=== PATIENT | male | born 1970 | race Caucasian/White ===

== ENCOUNTER 2021-08-01 11:25 | Inpatient (IN) | payer SELFPAY ==
[~2021-08-01] VITALS: Ht 185.4 cm; Wt 168.5 kg
--- NOTE | 2021-08-01 12:01 | ED.ADGEN ---
Past Medical History Past Medical History: Alcoholism Past Surgical History: No Surgical History Smoking Status: Current Every Day Smoker Alcohol Use: Heavy General Adult EDM: Chief Complaint: MULTIPLE COMPLAINTS HPI: HPI: Patient is a 51-year-old male who arrives via EMS complaining of progressive difficulty breathing as well as swelling over the past several weeks. Patient states he has a history of liver disease and drinks alcohol regularly to the tune of 6-8 beers nightly. Patient states over the past several weeks she has noticed that he has become more short of air with any exertion and does exhibit mild shortness of air at rest. Despite this, he denies any history of chest pain or fever. He further denies any known sick contacts and has had the coronavirus vaccine series. He does take a water pill however he denies any known diagnosis of congestive heart failure. He is awake, alert and nontoxic- appearing Review of Systems: Review of Systems: Constitutional: Reports fatigue. Denies fever or chills. [] Eyes: Denies change in visual acuity. [] HENT: Denies nasal congestion or sore throat. [] Respiratory: Reports shortness of breath. Denies cough. [] Cardiovascular: Reports generalized edema. Denies chest pain. [] GI: Denies abdominal pain, nausea, vomiting, bloody stools or diarrhea. [] : Denies dysuria. [] Musculoskeletal: Denies back pain or joint pain. [] Integument: Denies rash. [] Neurologic: Denies headache, focal weakness or sensory changes. [] Endocrine: Denies polyuria or polydipsia. [] Lymphatic: Denies swollen glands. [] Psychiatric: Denies depression or anxiety. [] Current Medications: Current Medications Medications (Trade) Dose Ordered Sig/Claus Start Time Stop Time Status Last Admin Dose Admin Ondansetron HCl (Zofran) 4 mg PRN Q8HRS PRN 08/01/21 13:15 08/02/21 13:14 UNV Allergies: Allergies: Allergies Uncoded Allergies Type Severity Reaction Last Updated Verified BEE STINGS Allergy Unknown 08/01/21 Physical Exam: PE: Constitutional: Obese and uncomfortable appearing. Well developed, well nourished, non-toxic appearance. [] HENT: Normocephalic, atraumatic, bilateral external ears normal, oropharynx moist, no oral exudates, nose normal. [] Eyes: PERRLA, EOMI, conjunctiva normal, no discharge. [] Neck: Normal range of motion, no tenderness, supple, no stridor. [] Cardiovascular:Heart rate regular rhythm, no murmur [] Lungs & Thorax: Patient has diminished breath sounds bilaterally. [] Abdomen: Abdominal wall distention/edema. Bowel sounds normal, soft, no tenderness, no masses, no pulsatile masses. [] Skin: Warm, dry, no erythema, no rash. [] Back: No tenderness, no CVA tenderness. [] Extremities: Patient has generalized edema of his extremities which is pitting in nature. No cyanosis, no clubbing, ROM intact, no edema. [] Neurologic: Alert and oriented X 3, normal motor function, normal sensory function, no focal deficits noted. [] Psychologic: Affect normal, judgement normal, mood normal. [] Current Patient Data: Labs: Laboratory Tests Test 08/01/21 12:05 White Blood Count 8.5 x10^3/uL (4.0-11.0) Red Blood Count 2.27 x10^6/uL (4.30-5.70) L Hemoglobin 9.9 g/dL (13.0-17.5) L Hematocrit 28.8 % (39.0-53.0) L Mean Corpuscular Volume 127 fL (79-100) H Mean Corpuscular Hemoglobin 43 pg (25-35) H Mean Corpuscular Hemoglobin Concent 34 g/dL (31-37) Red Cell Distribution Width 14.3 % (11.5-14.5) Platelet Count 137 x10^3/uL (140-400) L Neutrophils (%) (Auto) 77 % (31-73) H Lymphocytes (%) (Auto) 11 % (24-48) L Monocytes (%) (Auto) 11 % (0-9) H Eosinophils (%) (Auto) 1 % (0-3) Basophils (%) (Auto) 1 % (0-3) Neutrophils # (Auto) 6.5 x10^3/uL (1.8-7.7) Lymphocytes # (Auto) 0.9 x10^3/uL (1.0-4.8) L Monocytes # (Auto) 0.9 x10^3/uL (0.0-1.1) Eosinophils # (Auto) 0.0 x10^3/uL (0.0-0.7) Basophils # (Auto) 0.1 x10^3/uL (0.0-0.2) Platelet Estimate Decreased (ADEQUATE) Polychromasia Occasional Anisocytosis Slight Macrocytosis Mod Sodium Level 130 mmol/L (136-145) L Potassium Level 4.0 mmol/L (3.5-5.1) Chloride Level 94 mmol/L (98-107) L Carbon Dioxide Level 26 mmol/L (21-32) Anion Gap 10 (6-14) Blood Urea Nitrogen 4 mg/dL (8-26) L Creatinine 0.8 mg/dL (0.7-1.3) Estimated GFR (Cockcroft-Gault) 101.9 BUN/Creatinine Ratio 5 (6-20) L Glucose Level 133 mg/dL (70-99) H Calcium Level 7.7 mg/dL (8.5-10.1) L Total Bilirubin 4.4 mg/dL (0.2-1.0) H Aspartate Amino Transferase (AST) 82 U/L (15-37) H Alanine Aminotransferase (ALT) 27 U/L (16-63) Alkaline Phosphatase 200 U/L (46-116) H Troponin I High Sensitivity 9 ng/L (4-75) WV-Qqf-V-Type Natriuretic Peptide 251 pg/mL (0-124) H Total Protein 6.7 g/dL (6.4-8.2) Albumin 2.4 g/dL (3.4-5.0) L Albumin/Globulin Ratio 0.6 (1.0-1.7) L Laboratory Tests 08/01/21 12:05 Laboratory Tests 08/01/21 12:05 Vital Signs: Vital Signs Date Time Temp Pulse Resp B/P (MAP) Pulse Ox O2 Delivery O2 Flow Rate FiO2 08/01/21 12:39 99 157/69 (98) 100 Room Air 08/01/21 11:35 97.8 24 97.8 EKG: EKG: EKG was obtained at 11:40 AM and revealed a sinus tachycardia with a ventricular rate of 102 bpm. There are no acute ST/T wave changes to denote ischemia. This is an otherwise normal EKG. [] Heart Score: C/O Chest Pain: No Risk Factors: Risk Factors: DM, Current or recent (<one month) smoker, HTN, HLP, family history of CAD, obesity. Risk Scores: Score 0 - 3: 2.5% MACE over next 6 weeks - Discharge Home Score 4 - 6: 20.3% MACE over next 6 weeks - Admit for Clinical Observation Score 7 - 10: 72.7% MACE over next 6 weeks - Early Invasive Strategies Radiology/Procedures: Radiology/Procedures: [] Impression: [facility] [address] [place] [address] IMAGING REPORT Signed PATIENT: GARCIA DUMONT ACCOUNT: [id number] : 1970 LOCATION: ER AGE: 51 SEX: M EXAM STATUS: REG ER ORD. PHYSICIAN: MAYLIN OSEGUERA DO REASON: soa PROCEDURE: PORTABLE CHEST 1V Portable AP chest. HISTORY: Short of air AP view was taken of the chest. Heart is upper normal in size for an AP chest. There is no effusion. There are no confluent infiltrates. There is not evidence of heart failure. IMPRESSION: 1. No acute infiltrates. Electronically signed by: Stalin Johnson MD (08/01/2021 12:35 PM) [id number] DICTATED and SIGNED BY: STALIN JOHNSON MD DATE: 08/01/21 [id number] 0 Course & Med Decision Making: Course & Med Decision Making Pertinent Labs and Imaging studies reviewed. (See chart for details) [] Dragon Disclaimer: Dragon Disclaimer: This electronic medical record was generated, in whole or in part, using a voice recognition dictation system. Departure Departure Impression: Primary Impression: Respiratory distress Additional Impressions: History of alcoholism Person under investigation for COVID-19 Generalized edema Hyperbilirubinemia Disposition: ADMITTED INPATIENT Admitting Physician: EUGENIO Condition: STABLE Problem Qualifiers MAYLIN OSEGUERA DO Aug 01, 2021 12:01
[2021-08-01 12:23] LABS: BASO # 0.1 x10^3/uL (0.0-0.2); BASO % 1 % (0-3); EOS % 1 % (0-3); HEMATOCRIT 28.8 % (39.0-53.0); HEMOGLOBIN 9.9 g/dL (13.0-17.5); LYMPH # 0.9 x10^3/uL (1.0-4.8); LYMPH % 11 % (24-48); MEAN CORPUSCULAR HEMOGLOBIN 43 pg (25-35); MEAN CORPUSCULAR HGB CONC 34 g/dL (31-37); MONO # 0.9 x10^3/uL (0.0-1.1); MONO % 11 % (0-9); NEUT # 6.5 x10^3/uL (1.8-7.7); NEUT % 77 % (31-73); PLATELET COUNT 137 x10^3/uL (140-400); RED BLOOD COUNT 2.27 x10^6/uL (4.30-5.70); RED CELL DISTRIBUTION WIDTH 14.3 % (11.5-14.5); WHITE BLOOD COUNT 8.5 x10^3/uL (4.0-11.0)
[2021-08-01 12:24] LABS: MEAN CORPUSCULAR VOLUME 127 fL (79-100)
[2021-08-01 12:29] LABS: CALCIUM 7.7 mg/dL (8.5-10.1); CREATININE 0.8 mg/dL (0.7-1.3); GFR 101.9
[2021-08-01 12:35] LABS: ALBUMIN 2.4 g/dL (3.4-5.0); ALBUMIN/GLOBULIN RATIO 0.6 (1.0-1.7); TOTAL BILIRUBIN 4.4 mg/dL (0.2-1.0); TOTAL PROTEIN 6.7 g/dL (6.4-8.2)
--- NOTE | 2021-08-01 12:37 | RAD ---
Portable AP chest. HISTORY: Short of air AP view was taken of the chest. Heart is upper normal in size for an AP chest. There is no effusion. There are no confluent infiltrates. There is not evidence of heart failure. IMPRESSION: 1. No acute infiltrates. Electronically signed by: Stalin Whittington MD (08/01/2021 12:35 PM) [id number]
[2021-08-01 12:41] LABS: PLT ESTIMATE DECREASED (ADEQUATE)
[2021-08-01 12:43] LABS: ANISOCYTOSIS SLIGHT; POLYCHROMASIA OCCASIONAL
[2021-08-01] MEDS ORDERED: ONDANSETRON PF 4 MG/2 ML VIAL. IVP PRN ×2 (13:15→13:30)
[2021-08-01] MEDS ORDERED: DEXTROSE 50% 25 GM / 50ML DISP.SYRIN. IV PRN (13:30)
[2021-08-01] MEDS ORDERED: PROCHLORPERAZINE 10 MG/2 ML VIAL. IV PRN (13:30)
[2021-08-01] MEDS ORDERED: DOCUSATE SODIUM 100 MG CAPSULE. PO PRN (13:30)
[2021-08-01] MEDS ORDERED: ZOLPIDEM 5 MG TABLET. PO PRN (13:30)
[2021-08-01] MEDS ORDERED: SENNOSIDES 8.6 MG TABLET PO PRN (13:30)
[2021-08-01 13:32] LABS: BILIRUBIN,URINE NEGATIVE (NEG); CLARITY,URINE CLEAR; COLOR,URINE AMBER; NITRITE,URINE NEGATIVE (NEG); PROTEIN,URINE NEGATIVE (NEG-TRACE)
[2021-08-01 13:39] LABS: BARBITURATES NEG (NEG); BENZODIAZEPINES NEG (NEG); CANNABINOIDS NEG (NEG); COCAINE NEG (NEG); HYALINE CASTS, URINE MODERATE /HPF; METHADONE NEG (NEG); OPIATES NEG (NEG); PHENCYCLIDINE NEG (NEG)
[2021-08-01 13:41] LABS: AMPHETAMINE/METHAMPHETAMINE NEG (NEG)
[2021-08-01 13:41] LABS: CHOLESTEROL/HDL RATIO 3.3
[2021-08-01 13:42] LABS: BACTERIA,URINE 0 /HPF (0-FEW)
[2021-08-01] MEDS: FOLIC ACID 1 MG TABLET. PO SCH (14:00)
--- NOTE | 2021-08-01 14:02 | RAD ---
EXAMINATION: US ABDOMEN COMPLETE 08/01/2021 1:21 PM INDICATION: Abdominal pain elevated bilirubin, rule out gallbladder disease TECHNIQUE: Kellogg scale ultrasound images of the abdomen were obtained. COMPARISON: None. FINDINGS: Nondiagnostic exam due extensive bowel gas shadowing, obscuring all of the abdominal organs. IMPRESSION: Nondiagnostic exam due to extensive bowel gas shadowing. Unable to visualize any of the a bdominal organs. Electronically signed by: Citlali Salinas MD (08/01/2021 1:59 PM) [id number]
--- NOTE | 2021-08-01 14:20 | PDOC2 ---
GI CONSULT Date of Service: DATE: 08/01/21 TIME: 13:53 Reason For Consult: h/o alcoholism, liver disease HPI: HPI: 51 y/o male to ER for evaluation of shortness of breath and swelling. Ongoing issue for a couple weeks. Was seen at [facility] ER by [employer] [facility] for same symptoms; indicates some sort of imaging was done ("they put me in a big tube") and "everything pointed to liver disease." Was given "pee pills" (two different medications) and told to see a liver specialist. Not feeling much better, so decided to come here. Denies reflux/heartburn, dysphagia, n/v, abd pain, diarrhea, constipation, hematochezia, or melena. Has gained weight - attributes to living with his mom who offers him brownies. No previous EGD or colonoscopy. Denies GB, pancreas, and PUD history. Takes no OTC medications. Had Moderna COVID vaccines. PMH: PMH: diabetes (says controlled w/ diet and weight loss in the past) FH: Family History: No pertinent hx (denies liver disease, GI cancers) Social History: Smoke: Quit (1 week ago) ALCOHOL: heavy (6-8 beers daily, had two this morning) Drugs: None ROS: GEN: Denies fevers, chills, sweats HEENT: Denies blurred vision, sore throat CV: Denies chest pain RESP: +shortness of air GI: Per HPI : Denies hematuria, dysuria ENDO: +weight gain NEURO: Denies confusion, dizziness MSK: +weakness/tightness in legs SKIN: Denies jaundice, pruritus Vitals: Vitals: Vital Signs Date Time Temp Pulse Resp B/P (MAP) Pulse Ox O2 Delivery O2 Flow Rate FiO2 08/01/21 12:39 99 157/69 (98) 100 Room Air 08/01/21 11:35 97.8 24 97.8 Labs: Labs: Laboratory Tests Test 08/01/21 12:05 08/01/21 12:40 08/01/21 13:10 White Blood Count 8.5 x10^3/uL (4.0-11.0) Red Blood Count 2.27 x10^6/uL (4.30-5.70) Hemoglobin 9.9 g/dL (13.0-17.5) Hematocrit 28.8 % (39.0-53.0) Mean Corpuscular Volume 127 fL (79-100) Mean Corpuscular Hemoglobin 43 pg (25-35) Mean Corpuscular Hemoglobin Concent 34 g/dL (31-37) Red Cell Distribution Width 14.3 % (11.5-14.5) Platelet Count 137 x10^3/uL (140-400) Neutrophils (%) (Auto) 77 % (31-73) Lymphocytes (%) (Auto) 11 % (24-48) Monocytes (%) (Auto) 11 % (0-9) Eosinophils (%) (Auto) 1 % (0-3) Basophils (%) (Auto) 1 % (0-3) Neutrophils # (Auto) 6.5 x10^3/uL (1.8-7.7) Lymphocytes # (Auto) 0.9 x10^3/uL (1.0-4.8) Monocytes # (Auto) 0.9 x10^3/uL (0.0-1.1) Eosinophils # (Auto) 0.0 x10^3/uL (0.0-0.7) Basophils # (Auto) 0.1 x10^3/uL (0.0-0.2) Platelet Estimate Decreased (ADEQUATE) Polychromasia Occasional Anisocytosis Slight Macrocytosis Mod Sodium Level 130 mmol/L (136-145) Potassium Level 4.0 mmol/L (3.5-5.1) Chloride Level 94 mmol/L (98-107) Carbon Dioxide Level 26 mmol/L (21-32) Anion Gap 10 (6-14) Blood Urea Nitrogen 4 mg/dL (8-26) Creatinine 0.8 mg/dL (0.7-1.3) Estimated GFR (Cockcroft-Gault) 101.9 BUN/Creatinine Ratio 5 (6-20) Glucose Level 133 mg/dL (70-99) Calcium Level 7.7 mg/dL (8.5-10.1) Iron Level 72 ug/dL (65-175) Total Iron Binding Capacity 102 ug/dL (250-450) Iron Saturation 71 % (15-34) Total Bilirubin 4.4 mg/dL (0.2-1.0) Aspartate Amino Transf (AST/SGOT) 82 U/L (15-37) Alanine Aminotransferase (ALT/SGPT) 27 U/L (16-63) Alkaline Phosphatase 200 U/L (46-116) Troponin I High Sensitivity 9 ng/L (4-75) UW-Aex-N-Type Natriuretic Peptide 251 pg/mL (0-124) Total Protein 6.7 g/dL (6.4-8.2) Albumin 2.4 g/dL (3.4-5.0) Albumin/Globulin Ratio 0.6 (1.0-1.7) Triglycerides Level 75 mg/dL (0-150) Cholesterol Level 52 mg/dL (0-200) LDL Cholesterol, Calculated 21 mg/dL (0-100) VLDL Cholesterol, Calculated 15 mg/dL (0-40) Non-HDL Cholesterol Calculated 36 mg/dL (0-129) HDL Cholesterol 16 mg/dL (40-60) Cholesterol/HDL Ratio 3.3 SARS-CoV-2 Antigen (Rapid) Negative (NEGATIVE) Urine Collection Type Unknown Urine Color Mariah Urine Clarity Clear Urine pH 6.0 (<5.0-8.0) Urine Specific [place] <=1.005 (1.000-1.030) Urine Protein Negative mg/dL (NEG-TRACE) Urine Glucose (UA) Negative mg/dL (NEG) Urine Ketones (Stick) Negative mg/dL (NEG) Urine Blood Moderate (NEG) Urine Nitrite Negative (NEG) Urine Bilirubin Negative (NEG) Urine Urobilinogen Dipstick 1.0 mg/dL (0.2 mg/dL) Urine Leukocyte Esterase Trace (NEG) Urine RBC 3-5 /HPF (0-2) Urine WBC 1-4 /HPF (0-4) Urine Squamous Epithelial Cells Few /LPF Urine Bacteria 0 /HPF (0-FEW) Urine Hyaline Casts Moderate /HPF Urine Mucus Slight /LPF Urine Opiates Screen Neg (NEG) Urine Methadone Screen Neg (NEG) Urine Barbiturates Neg (NEG) Urine Phencyclidine Screen Neg (NEG) Urine Amphetamine/Methamphetamine Neg (NEG) Urine Benzodiazepines Screen Neg (NEG) Urine Cocaine Screen Neg (NEG) Urine Cannabinoids Screen Neg (NEG) Urine Ethyl Alcohol Pos (NEG) Ammonia 33 mcmol/L (11-34) Ethyl Alcohol Level 15 mg/dL (0-10) Allergies: Uncoded Allergies: BEE STINGS (Allergy, Unknown, 08/01/21) Imaging: Imaging: CXR 08/01 IMPRESSION: 1. No acute infiltrates. Abd US 08/01 pending PE: GEN: sweaty HEENT: Atraumatic, PERRL LUNGS: clear anteriorly, at some tachypneic HEART: mildly tachycardic ABD: quiet BS, large/distended - ?ascites? - chronic skin changes in lower area, EXTREMITY/SKIN: BLE redness/edema, rash on abdomen, telangiectasia bilateral cheeks NEURO/PSYCH: A & O 3 A/P: A/P: Shortness of breath, BLE edema, h/o heavy alcohol use Macrocytic anemia (MCV impressive), thrombocytopenia, abnormal LFTs, elevated iron sat CRC screen - none Rapid COVID negative -- Suspected alcoholic liver disease. Await pending labs (B12, INR, viral Hep panel) and US. Consider paracentesis if imaging notes ascites. Will ask for imaging/labs from recent ER visit. Withdrawal support per primary, continue thiamine. Will review diuretics w/ Dr. Galo. 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 MIRIAM DIAZ Aug 01, 2021 14:20
[2021-08-01] MEDS: THIAMINE INJ 100 MG in IV DEXTROSE 5% 50 ML IV SCH (14:37)
[2021-08-01] MEDS: CYANOCOBALAMIN (VITAMIN B-12) 1,000 MCG/ML VIAL. IM SCH (14:38)
[2021-08-01 15:15] VITALS: BP 159/73
[2021-08-01 15:16] LABS: PROTHROMBIN TIME PATIENT 18.6 SEC (11.7-14.0)
--- NOTE | 2021-08-01 16:24 | RAD ---
EXAMINATION: CT abdomen and pelvis without IV contrast. INDICATION:51 years, Male, abdominal pain, ascites?. TECHNIQUE: Axial CT images of the abdomen and pelvis were obtained. Coronal and sagittal reformatted performed. COMPARISON: Same day abdominal CT. Exposure: One or more of the following individualized dose reduction techniques were utilized for thi s examination: 1. Automated exposure control 2. Adjustment of the mA and/or kV according to patient size 3. Use of iterative reconstruction technique. FINDINGS: LOWER CHEST: Mild bibasilar subsegmental atelectasis. ABDOMEN/PELVIS: Hepatic steatosis. No focal abnormality. Gallbladder is mildly distended with minimal layering sludge and/or stones. No definite pericholecystic fluid. No pathologic dilation of the intra or extrahepati c bile ducts. Pancreas demonstrates normal attenuation with mild peripancreatic edema. Kidneys are sy mmetric no nephrolithiasis or hydroureteronephrosis. Stomach is unremarkable. No evidence of bowel ob struction 6 is normal. The small and large bowel is mostly decompressed. There is sigmoid diverticulo sis without evidence of diverticulitis. No free intra-abdominal air. There is a juliana appearance of t he mesenteric root. Enlarged marlene hepatis adenopathy measuring up to 1.4 cm in short axis, likely reactive. There is a t race amount of intra-abdominal ascites. Urinary bladder is unremarkable. Prostate is unremarkable. MUSCULOSKELETAL: There is diffuse anasarca. No evidence of loculated fluid collection within the subc utaneous tissues. No acute or suspicious osseous abnormalities. IMPRESSION: 1. Findings suggestive of fluid overload including severe anasarca and trace intra-abdominal ascites. 2. Mild peripancreatic fat stranding may represent sequela of fluid overload, recommend correlation w ith lipase to exclude acute pancreatitis. 3. Hepatic steatosis with likely reactive enlarged marlene hepatis lymph nodes. No imaging findings to suggest cirrhosis. Recommend attention on follow-up. Electronically signed by: Tyrone Tesfaye DO (08/01/2021 4:22 PM) [facility]
--- NOTE | 2021-08-01 16:26 | EKG ---
[facility] [address] [place] [address] Test Date: 2021-08-01 Test Time: 11:40:01 Pat Name: GARCIA DUMONT Department: Room: 2 Gender: M [employer]aze [employer]er: : 1970 Requested By: MAYLIN OSEGUERA Order Number: [id number] Reading MD: Quentin Aponte Measurements Intervals [place] Rate: 102 P: 44 WV: 152 QRS: 23 QRSD: 78 T: 66 QT: 368 QTc: 484 Interpretive Statements SINUS TACHYCARDIA NON SPECIFIC ST-T WAVE CHANGES RI6.02 No previous ECG available for comparison Electronically Signed On 08-06-2021 10:10:54 [employer] by Quentin Aponte
--- NOTE | 2021-08-01 17:04 | PDOC1 ---
History and Physical Date of Service: DOS: DATE: 08/01/21 TIME: 16:41 Chief Complaint: Chief Complain: SOB History of Present Illness: HPI: 51 yo M with PMHx of DM, obesity who comes in with worsening shortness of breath and lower extremity swelling that has been happening over several weeks. Before this incident, patient was seen at [facility] ER and was told to see a liver specialist because he likely has liver disease. He was given a diuretic and sent home. He has not followed up with those recommendations and therefore he decided to come to [facility]. He does endorse nightly 6-8 beers of drinking. Patient states over the past several weeks she has noticed that he has become more short of air with any exertion and does exhibit mild shortness of air at rest. Denies chest pain, diarrhea, hematemesis, melena, or constipation. He does endorse weight gain. He is COVID vaccinated. No previous EGD or colonoscopy. Past Medical/Surgical History: PMH/PSH: DM, Morbid obesity Allergies: Allergies: Uncoded Allergies: BEE STINGS (Allergy, Unknown, 08/01/21) Family History: Family History: REviewed with no relevant findings Social History: Social History: Smoking Status: Current Every Day Smoker Alcohol Use: Heavy Current Medications: Current Medications Current Medications Ondansetron HCl (Zofran) 4 mg PRN Q8HRS PRN IVP NAUSEA/VOMITING; Start 08/01/21 at 13:15; Stop 08/02/21 at 13:14 Thiamine HCl 100 mg/Dextrose 51 ml @ 102 mls/hr DAILY IV Last administered on 08/01/21at 14:37; Start 08/01/21 at 14:00 Folic Acid (Folic Acid) 1 mg DAILY PO ; Start 08/01/21 at 14:00 Cyanocobalamin (Vitamin B-12 Inj) 1,000 mcg DAILY IM Last administered on 08/01/21at 14:38; Start 08/01/21 at 13:15 Sennosides (Senna) 17.2 mg PRN BID PRN PO CONSTIPATION; Start 08/01/21 at 13:30 Docusate Sodium (Colace) 100 mg PRN DAILY PRN PO HARD STOOLS; Start 08/01/21 at 13:30 Ondansetron HCl (Zofran) 4 mg PRN Q6HRS PRN IVP NAUSEA/VOMITING; Start 08/01/21 at 13:30 Dextrose (Dextrose 50%-Water Syringe) 12.5 gm PRN Q15MIN PRN IV SEE COMMENTS; Start 08/01/21 at 13:30 Acetaminophen (Tylenol) 650 mg PRN Q4HRS PRN PO TEMP OVER 100.4F OR MILD PAIN; Start 08/01/21 at 13:30 Lorazepam (Ativan) 0.5 mg PRN Q6HRS PRN PO ANXIETY / AGITATION; Start 08/01/21 at 13:30 Lorazepam (Ativan Inj) 0.25 mg PRN Q4HRS PRN IV ANXIETY / AGITATION; Start 08/01/21 at 13:30 Prochlorperazine Edisylate (Compazine) 10 mg PRN Q6HRS PRN IV NAUSEA/VOMITING; Start 08/01/21 at 13:30 Zolpidem Tartrate (Ambien) 2.5 mg PRN QHS PRN PO INSOMNIA; Start 08/01/21 at 13:30 ROS: Review of Systems Review of System REVIEW OF SYSTEMS: GENERAL: Denies weakness SKIN: No bruising, hair changes or rashes. EYES: No blurred, double or loss of vision. NOSE AND THROAT: No history of nosebleeds, hoarseness or sore throat. HEART: No history of palpitations, chest pain or shortness of breath on exertion. LUNGS: Denies cough, hemoptysis, wheezing or shortness of breath. GASTROINTESTINAL: Denies changes in appetite, nausea, vomiting, diarrhea or constipation. GENITOURINARY: No history of frequency, urgency, hesitancy or nocturia. NEUROLOGIC: Denies history of numbness, tingling, or tremor. PSYCHIATRIC: No history of panic, anxiety or depression. ENDOCRINE: No history of heat or cold intolerance, polyuria or polydipsia. EXTREMITIES: Denies joint pain, pain on walking or stiffness. Physical Exam: Vital Signs: Vital Signs Date Time Temp Pulse Resp B/P (MAP) Pulse Ox O2 Delivery O2 Flow Rate FiO2 08/01/21 15:15 97.9 102 28 159/73 (101) 99 Room Air 97.9 Physcial Exam: GEN: No apparent distress. Alert and oriented HEENT: Normal cephalic, atraumatic, external auditory canals are patent EYES: Extraocular muscles are intact, pupil are equally round and reactive to light and accommodation MUSCULOSKELETAL: Well developed , well nourished, good range of motion ENDOCRINE: No thyromegaly was palpated LYMPHATICS: No cervical chain or axillary nodes were noted HEMATOPOIETIC: No bruising NECK: Supple, no JVD, no thyromegaly was noted LUNGS: Clear to auscultation in all lung alvarez without rhonchi or wheezing HEART: RRR, S!, S2 present. Peripheral pulses intact, no obvious murmurs noted ABDOMEN: Soft, nontender. Positive bowel sounds, no organomegaly, normal bowel sounds EXTREMITIES: Without clubbing, cyanosis, or edema. Pedal pulses intact. Negative Homans sign NEUROLOGIC: Normal speech and tone. A&O x 3, moves all extremities, no obvious focal deficits PSYCHIATRIC: Normal affect, normal mood. Stable SKIN: No ulcerations or rashes, good skin turgor, no jaundice VASCULAR: Good capillary refill, neurovascular bundle appears to be intact Labs: Labs: Laboratory Tests Test 08/01/21 12:05 08/01/21 12:37 08/01/21 12:40 08/01/21 13:10 White Blood Count 8.5 x10^3/uL (4.0-11.0) Red Blood Count 2.27 x10^6/uL (4.30-5.70) Hemoglobin 9.9 g/dL (13.0-17.5) Hematocrit 28.8 % (39.0-53.0) Mean Corpuscular Volume 127 fL (79-100) Mean Corpuscular Hemoglobin 43 pg (25-35) Mean Corpuscular Hemoglobin Concent 34 g/dL (31-37) Red Cell Distribution Width 14.3 % (11.5-14.5) Platelet Count 137 x10^3/uL (140-400) Neutrophils (%) (Auto) 77 % (31-73) Lymphocytes (%) (Auto) 11 % (24-48) Monocytes (%) (Auto) 11 % (0-9) Eosinophils (%) (Auto) 1 % (0-3) Basophils (%) (Auto) 1 % (0-3) Neutrophils # (Auto) 6.5 x10^3/uL (1.8-7.7) Lymphocytes # (Auto) 0.9 x10^3/uL (1.0-4.8) Monocytes # (Auto) 0.9 x10^3/uL (0.0-1.1) Eosinophils # (Auto) 0.0 x10^3/uL (0.0-0.7) Basophils # (Auto) 0.1 x10^3/uL (0.0-0.2) Platelet Estimate Decreased (ADEQUATE) Polychromasia Occasional Anisocytosis Slight Macrocytosis Mod Sodium Level 130 mmol/L (136-145) Potassium Level 4.0 mmol/L (3.5-5.1) Chloride Level 94 mmol/L (98-107) Carbon Dioxide Level 26 mmol/L (21-32) Anion Gap 10 (6-14) Blood Urea Nitrogen 4 mg/dL (8-26) Creatinine 0.8 mg/dL (0.7-1.3) Estimated GFR (Cockcroft-Gault) 101.9 BUN/Creatinine Ratio 5 (6-20) Glucose Level 133 mg/dL (70-99) Calcium Level 7.7 mg/dL (8.5-10.1) Iron Level 72 ug/dL (65-175) Total Iron Binding Capacity 102 ug/dL (250-450) Iron Saturation 71 % (15-34) Total Bilirubin 4.4 mg/dL (0.2-1.0) Aspartate Amino Transf (AST/SGOT) 82 U/L (15-37) Alanine Aminotransferase (ALT/SGPT) 27 U/L (16-63) Alkaline Phosphatase 200 U/L (46-116) Troponin I High Sensitivity 9 ng/L (4-75) YR-Iwn-N-Type Natriuretic Peptide 251 pg/mL (0-124) Total Protein 6.7 g/dL (6.4-8.2) Albumin 2.4 g/dL (3.4-5.0) Albumin/Globulin Ratio 0.6 (1.0-1.7) Triglycerides Level 75 mg/dL (0-150) Cholesterol Level 52 mg/dL (0-200) LDL Cholesterol, Calculated 21 mg/dL (0-100) VLDL Cholesterol, Calculated 15 mg/dL (0-40) Non-HDL Cholesterol Calculated 36 mg/dL (0-129) HDL Cholesterol 16 mg/dL (40-60) Cholesterol/HDL Ratio 3.3 Vitamin B12 Level > 2000 pg/mL (247-911) Hepatitis A IgM Antibody Nonreactive (Nonreactive) Hepatitis B Surface Antigen Nonreactive (Nonreactive) Hepatitis B Core IgM Antibody Nonreactive (Nonreactive) Hepatitis C IgG Antibody Nonreactive (Nonreactive) SARS-CoV-2 Antigen (Rapid) Negative (NEGATIVE) SARS-CoV-2 RNA (SOCRATES) Negative (Negative) Urine Collection Type Unknown Urine Color Mariah Urine Clarity Clear Urine pH 6.0 (<5.0-8.0) Urine Specific [place] <=1.005 (1.000-1.030) Urine Protein Negative mg/dL (NEG-TRACE) Urine Glucose (UA) Negative mg/dL (NEG) Urine Ketones (Stick) Negative mg/dL (NEG) Urine Blood Moderate (NEG) Urine Nitrite Negative (NEG) Urine Bilirubin Negative (NEG) Urine Urobilinogen Dipstick 1.0 mg/dL (0.2 mg/dL) Urine Leukocyte Esterase Trace (NEG) Urine RBC 3-5 /HPF (0-2) Urine WBC 1-4 /HPF (0-4) Urine Squamous Epithelial Cells Few /LPF Urine Bacteria 0 /HPF (0-FEW) Urine Hyaline Casts Moderate /HPF Urine Mucus Slight /LPF Urine Opiates Screen Neg (NEG) Urine Methadone Screen Neg (NEG) Urine Barbiturates Neg (NEG) Urine Phencyclidine Screen Neg (NEG) Urine Amphetamine/Methamphetamine Neg (NEG) Urine Benzodiazepines Screen Neg (NEG) Urine Cocaine Screen Neg (NEG) Urine Cannabinoids Screen Neg (NEG) Urine Ethyl Alcohol Pos (NEG) Ammonia 33 mcmol/L (11-34) Ethyl Alcohol Level 15 mg/dL (0-10) Test 08/01/21 14:31 Prothrombin Time 18.6 SEC (11.7-14.0) Prothromb Time International Ratio 1.6 (0.8-1.1) Laboratory Tests Test 08/01/21 12:05 08/01/21 12:37 08/01/21 12:40 08/01/21 13:10 White Blood Count 8.5 x10^3/uL (4.0-11.0) Red Blood Count 2.27 x10^6/uL (4.30-5.70) Hemoglobin 9.9 g/dL (13.0-17.5) Hematocrit 28.8 % (39.0-53.0) Mean Corpuscular Volume 127 fL (79-100) Mean Corpuscular Hemoglobin 43 pg (25-35) Mean Corpuscular Hemoglobin Concent 34 g/dL (31-37) Red Cell Distribution Width 14.3 % (11.5-14.5) Platelet Count 137 x10^3/uL (140-400) Neutrophils (%) (Auto) 77 % (31-73) Lymphocytes (%) (Auto) 11 % (24-48) Monocytes (%) (Auto) 11 % (0-9) Eosinophils (%) (Auto) 1 % (0-3) Basophils (%) (Auto) 1 % (0-3) Neutrophils # (Auto) 6.5 x10^3/uL (1.8-7.7) Lymphocytes # (Auto) 0.9 x10^3/uL (1.0-4.8) Monocytes # (Auto) 0.9 x10^3/uL (0.0-1.1) Eosinophils # (Auto) 0.0 x10^3/uL (0.0-0.7) Basophils # (Auto) 0.1 x10^3/uL (0.0-0.2) Platelet Estimate Decreased (ADEQUATE) Polychromasia Occasional Anisocytosis Slight Macrocytosis Mod Sodium Level 130 mmol/L (136-145) Potassium Level 4.0 mmol/L (3.5-5.1) Chloride Level 94 mmol/L (98-107) Carbon Dioxide Level 26 mmol/L (21-32) Anion Gap 10 (6-14) Blood Urea Nitrogen 4 mg/dL (8-26) Creatinine 0.8 mg/dL (0.7-1.3) Estimated GFR (Cockcroft-Gault) 101.9 BUN/Creatinine Ratio 5 (6-20) Glucose Level 133 mg/dL (70-99) Calcium Level 7.7 mg/dL (8.5-10.1) Iron Level 72 ug/dL (65-175) Total Iron Binding Capacity 102 ug/dL (250-450) Iron Saturation 71 % (15-34) Total Bilirubin 4.4 mg/dL (0.2-1.0) Aspartate Amino Transf (AST/SGOT) 82 U/L (15-37) Alanine Aminotransferase (ALT/SGPT) 27 U/L (16-63) Alkaline Phosphatase 200 U/L (46-116) Troponin I High Sensitivity 9 ng/L (4-75) OE-Xcq-U-Type Natriuretic Peptide 251 pg/mL (0-124) Total Protein 6.7 g/dL (6.4-8.2) Albumin 2.4 g/dL (3.4-5.0) Albumin/Globulin Ratio 0.6 (1.0-1.7) Triglycerides Level 75 mg/dL (0-150) Cholesterol Level 52 mg/dL (0-200) LDL Cholesterol, Calculated 21 mg/dL (0-100) VLDL Cholesterol, Calculated 15 mg/dL (0-40) Non-HDL Cholesterol Calculated 36 mg/dL (0-129) HDL Cholesterol 16 mg/dL (40-60) Cholesterol/HDL Ratio 3.3 Vitamin B12 Level > 2000 pg/mL (247-911) Hepatitis A IgM Antibody Nonreactive (Nonreactive) Hepatitis B Surface Antigen Nonreactive (Nonreactive) Hepatitis B Core IgM Antibody Nonreactive (Nonreactive) Hepatitis C IgG Antibody Nonreactive (Nonreactive) SARS-CoV-2 Antigen (Rapid) Negative (NEGATIVE) SARS-CoV-2 RNA (SOCRATES) Negative (Negative) Urine Collection Type Unknown Urine Color Mariah Urine Clarity Clear Urine pH 6.0 (<5.0-8.0) Urine Specific [place] <=1.005 (1.000-1.030) Urine Protein Negative mg/dL (NEG-TRACE) Urine Glucose (UA) Negative mg/dL (NEG) Urine Ketones (Stick) Negative mg/dL (NEG) Urine Blood Moderate (NEG) Urine Nitrite Negative (NEG) Urine Bilirubin Negative (NEG) Urine Urobilinogen Dipstick 1.0 mg/dL (0.2 mg/dL) Urine Leukocyte Esterase Trace (NEG) Urine RBC 3-5 /HPF (0-2) Urine WBC 1-4 /HPF (0-4) Urine Squamous Epithelial Cells Few /LPF Urine Bacteria 0 /HPF (0-FEW) Urine Hyaline Casts Moderate /HPF Urine Mucus Slight /LPF Urine Opiates Screen Neg (NEG) Urine Methadone Screen Neg (NEG) Urine Barbiturates Neg (NEG) Urine Phencyclidine Screen Neg (NEG) Urine Amphetamine/Methamphetamine Neg (NEG) Urine Benzodiazepines Screen Neg (NEG) Urine Cocaine Screen Neg (NEG) Urine Cannabinoids Screen Neg (NEG) Urine Ethyl Alcohol Pos (NEG) Ammonia 33 mcmol/L (11-34) Ethyl Alcohol Level 15 mg/dL (0-10) Test 08/01/21 14:31 Prothrombin Time 18.6 SEC (11.7-14.0) Prothromb Time International Ratio 1.6 (0.8-1.1) Images: Images PROCEDURE: CT ABDOMEN PELVIS WO CONTRAST EXAMINATION: CT abdomen and pelvis without IV contrast. INDICATION:51 years, Male, abdominal pain, ascites?. TECHNIQUE: Axial CT images of the abdomen and pelvis were obtained. Coronal and sagittal reformatted performed. COMPARISON: Same day abdominal CT. Exposure: One or more of the following individualized dose reduction techniques were utilized for this examination: 1. Automated exposure control 2. Adjustment of the mA and/or kV according to patient size 3. Use of iterative reconstruction technique. FINDINGS: LOWER CHEST: Mild bibasilar subsegmental atelectasis. ABDOMEN/PELVIS: Hepatic steatosis. No focal abnormality. Gallbladder is mildly distended with minimal layering sludge and/or stones. No definite pericholecystic fluid. No pathologic dilation of the intra or extrahepatic bile ducts. Pancreas demonstr ates normal attenuation with mild peripancreatic edema. Kidneys are symmetric no nephrolithiasis or hydroureteronephrosis. Stomach is unremarkable. No evidence of bowel obstruction 6 is normal. The small and large bowel is mostly decompressed. There is sigmoid diverticulosis without evidence of diverticulitis. No free intra-abdominal air. There is a juliana appearance of the mesenteric root. Enlarged marlene hepatis adenopathy measuring up to 1.4 cm in short axis, likely reactive. There is a trace amount of intra-abdominal ascites. Urinary bladder is unremarkable. Prostate is unremarkable. MUSCULOSKELETAL: There is diffuse anasarca. No evidence of loculated fluid collection within the subcutaneous tissues. No acute or suspicious osseous abnormalities. IMPRESSION: 1. Findings suggestive of fluid overload including severe anasarca and trace intra-abdominal ascites. 2. Mild peripancreatic fat stranding may represent sequela of fluid overload, recommend correlation with lipase to exclude acute pancreatitis. 3. Hepatic steatosis with likely reactive enlarged marlene hepatis lymph nodes. No imaging findings to suggest cirrhosis. Recommend attention on follow-up. Assessment/Plan Assessment/Plan Acute on chronic volume overload Acute electrolyte derrangement - hyponatremia and hypochloremia Anasarca Hyperbilirubinemia Pancytopenia Morbid Obesity Hepatic steatosis Hx of DM Admit to hospitalist for further management GI consult ABD imaging - US and CT if unable to visualize Heme consult B1/B12/folate supplementation IV Diuresis daily Lovenox and SCD for DVT prophylaxis ADA diet FULL code In addition to my E/M visit. Smoking cessation: Total time spent was 12 minutes in face to face counseling. Patient has agreed to consider nicotine patches/gum or to start on Varenicline when discharged. Justifications for Admission Other Justification EDEMA and ELEVATED TBILI GABY HAMLIN MD Aug 01, 2021 17:04
[2021-08-01] MEDS: LORazepam 0.5 MG TABLET PO PRN (18:56)
[2021-08-01] MEDS: ACETAMINOPHEN 325 MG TABLET. PO PRN (18:57)
--- NOTE | 2021-08-01 19:19 | NUR ---
at 15:00 PM The patient, GARCIA DUMONT, 51 y/o, M admitted by GABY HAMLIN MD, was given written information regarding hospital policies, unit procedures and contact persons. Valuables were checked and left with him.
[2021-08-01 19:51] VITALS: BP 124/67
[2021-08-01 23:12] VITALS: BP 122/52
[2021-08-02 03:22] VITALS: BP 155/71
[2021-08-02 07:00] VITALS: BP 166/76
[2021-08-02 07:23] LABS: HEMOGLOBIN A1C 4.9 % (4.8-5.6)
[2021-08-02] MEDS ORDERED: FUROSEMIDE 40 MG/4 ML VIAL. IVP ONE (07:45)
[2021-08-02] MEDS: FOLIC ACID 1 MG TABLET. PO SCH (09:56)
[2021-08-02] MEDS: CYANOCOBALAMIN (VITAMIN B-12) 1,000 MCG/ML VIAL. IM SCH (10:00)
--- NOTE | 2021-08-02 10:03 | PDOC ---
Date of Service: DATE: 08/02/21 TIME: 09:54 Subjective: Subjective: Feels fine, says breathing better. Wants to know if he can live a long time with cirrhosis and wants to know if he has fatty liver or cirrhosis. Hasn't eaten breakfast because every time he tries someone else has to come into the room. Objective: Objective: Nurse present - just gave IV Lasix. Vital Signs: Vital Signs Date Time Temp Pulse Resp B/P (MAP) Pulse Ox O2 Delivery O2 Flow Rate FiO2 08/02/21 07:00 97.4 68 20 166/76 (106) 99 Room Air 97.4 Labs: Laboratory Tests Test 08/01/21 12:05 08/01/21 12:37 08/01/21 12:40 08/01/21 13:10 White Blood Count 8.5 x10^3/uL Red Blood Count 2.27 x10^6/uL Hemoglobin 9.9 g/dL Hematocrit 28.8 % Mean Corpuscular Volume 127 fL Mean Corpuscular Hemoglobin 43 pg Mean Corpuscular Hemoglobin Concent 34 g/dL Red Cell Distribution Width 14.3 % Platelet Count 137 x10^3/uL Neutrophils (%) (Auto) 77 % Lymphocytes (%) (Auto) 11 % Monocytes (%) (Auto) 11 % Eosinophils (%) (Auto) 1 % Basophils (%) (Auto) 1 % Neutrophils # (Auto) 6.5 x10^3/uL Lymphocytes # (Auto) 0.9 x10^3/uL Monocytes # (Auto) 0.9 x10^3/uL Eosinophils # (Auto) 0.0 x10^3/uL Basophils # (Auto) 0.1 x10^3/uL Platelet Estimate Decreased Polychromasia Occasional Anisocytosis Slight Macrocytosis Mod Sodium Level 130 mmol/L Potassium Level 4.0 mmol/L Chloride Level 94 mmol/L Carbon Dioxide Level 26 mmol/L Anion Gap 10 Blood Urea Nitrogen 4 mg/dL Creatinine 0.8 mg/dL Estimated GFR (Cockcroft-Gault) 101.9 BUN/Creatinine Ratio 5 Glucose Level 133 mg/dL Hemoglobin A1c 4.9 % Calcium Level 7.7 mg/dL Iron Level 72 ug/dL Total Iron Binding Capacity 102 ug/dL Iron Saturation 71 % Total Bilirubin 4.4 mg/dL Aspartate Amino Transf (AST/SGOT) 82 U/L Alanine Aminotransferase (ALT/SGPT) 27 U/L Alkaline Phosphatase 200 U/L Troponin I High Sensitivity 9 ng/L DP-Hgt-L-Type Natriuretic Peptide 251 pg/mL Total Protein 6.7 g/dL Albumin 2.4 g/dL Albumin/Globulin Ratio 0.6 Triglycerides Level 75 mg/dL Cholesterol Level 52 mg/dL LDL Cholesterol, Calculated 21 mg/dL VLDL Cholesterol, Calculated 15 mg/dL Non-HDL Cholesterol Calculated 36 mg/dL HDL Cholesterol 16 mg/dL Cholesterol/HDL Ratio 3.3 Lipase 81 U/L Vitamin B12 Level > 2000 pg/mL Hepatitis A IgM Antibody Nonreactive Hepatitis B Surface Antigen Nonreactive Hepatitis B Core IgM Antibody Nonreactive Hepatitis C IgG Antibody Nonreactive SARS-CoV-2 Antigen (Rapid) Negative SARS-CoV-2 RNA (SOCRATES) Negative Urine Collection Type Unknown Urine Color Mariah Urine Clarity Clear Urine pH 6.0 Urine Specific [place] <=1.005 Urine Protein Negative mg/dL Urine Glucose (UA) Negative mg/dL Urine Ketones (Stick) Negative mg/dL Urine Blood Moderate Urine Nitrite Negative Urine Bilirubin Negative Urine Urobilinogen Dipstick 1.0 mg/dL Urine Leukocyte Esterase Trace Urine RBC 3-5 /HPF Urine WBC 1-4 /HPF Urine Squamous Epithelial Cells Few /LPF Urine Bacteria 0 /HPF Urine Hyaline Casts Moderate /HPF Urine Mucus Slight /LPF Urine Opiates Screen Neg Urine Methadone Screen Neg Urine Barbiturates Neg Urine Phencyclidine Screen Neg Urine Amphetamine/Methamphetamine Neg Urine Benzodiazepines Screen Neg Urine Cocaine Screen Neg Urine Cannabinoids Screen Neg Urine Ethyl Alcohol Pos Ammonia 33 mcmol/L Ethyl Alcohol Level 15 mg/dL Test 08/01/21 14:31 08/02/21 08:22 Prothrombin Time 18.6 SEC Prothromb Time International Ratio 1.6 Glucose (Fingerstick) 128 mg/dL Imaging: Abd US 08/01 IMPRESSION: Nondiagnostic exam due to extensive bowel gas shadowing. Unable to visualize any of the abdominal organs. CT A/P 08/01 FINDINGS: LOWER CHEST: Mild bibasilar subsegmental atelectasis. ABDOMEN/PELVIS: Hepatic steatosis. No focal abnormality. Gallbladder is mildly distended with minimal layering sludge and/or stones. No definite pericholecystic fluid. No pathologic dilation of the intra or extrahepatic bile ducts. Pancreas demonstrates normal attenuation with mild peripancreatic edema. Kidneys are symmetric no nephrolithiasis or hydroureteronephrosis. Stomach is unremarkable. No evidence of bowel obstruction 6 is normal. The small and large bowel is most ly decompressed. There is sigmoid diverticulosis without evidence of diverticulitis. No free intra-abdominal air. There is a juliana appearance of the mesenteric root. Enlarged marlene hepatis adenopathy measuring up to 1.4 cm in short axis, likely reactive. There is a trace amount of intra-abdominal ascites. Urinary bladder is unremarkable. Prostate is unremarkable. MUSCULOSKELETAL: There is diffuse anasarca. No evidence of loculated fluid collection within the subcutaneous tissues. No acute or suspicious osseous abnormalities. IMPRESSION: 1. Findings suggestive of fluid overload including severe anasarca and trace intra-abdominal ascites. 2. Mild peripancreatic fat stranding may represent sequela of fluid overload, recommend correlation with lipase to exclude acute pancreatitis. 3. Hepatic steatosis with likely reactive enlarged marlene hepatis lymph nodes. No imaging findings to suggest cirrhosis. Recommend attention on follow-up. PE: GEN: difficulty adjusting position in bed, unable to pull breakfast tray closer LUNGS: clear HEART: RRR ABD/EXTREM: anasarca NEURO/PSYCH: A & O 3 A/P: Anasarca ?alcoholic liver disease - US unhelpful, hepatic steatosis per CT w/ only trace ascites -- Given IV Lasix today. Follow labs. Moving forward, no alcohol. Will need follow-up as outpt - encouraged compliance. Justicifation of Admission Dx: Justifications for Admission: Justification of Admission Dx: Yes MIRIAM DIAZ Aug 02, 2021 10:03
[2021-08-02 11:00] VITALS: BP 151/79
--- NOTE | 2021-08-02 11:23 | NUR ---
SW following. Discussed with RN, pt from home, room air, cardiac diet. COVID-19 negative. Med Assist following for self pay status. Pt concerned about some swelling in the genital area. SW will continue to follow.
--- NOTE | 2021-08-02 11:33 | PDOC ---
[employer] PROGRESS NOTE Date of Service DOS: DATE: 08/02/21 TIME: 11:23 Chief Complaint Chief Complaint Acute on chronic volume overload Acute electrolyte derrangement - hyponatremia and hypochloremia Anasarca Hyperbilirubinemia Pancytopenia Morbid Obesity Hepatic steatosis Hx of DM Admit to hospitalist for further management GI consult ABD imaging - US and CT if unable to visualize Heme consult B1/B12/folate supplementation IV Diuresis daily Lovenox and SCD for DVT prophylaxis ADA diet FULL code History of Present Illness History of Present Illness 51 yo M with PMHx of DM, obesity who comes in with worsening shortness of breath and lower extremity swelling that has been happening over several weeks. Before this incident, patient was seen at [facility] ER and was told to see a liver specialist because he likely has liver disease. He was given a diuretic and sent home. He has not followed up with those recommendations and therefore he decided to come to [facility]. He does endorse nightly 6-8 beers of drinking. Patient states over the past several weeks she has noticed that he has become more short of air with any exertion and does exhibit mild shortness of air at rest. Denies chest pain, diarrhea, hematemesis, melena, or constipation. He does endorse weight gain. He is COVID vaccinated. 08/02/2021 No acute events overnight. Patient seen examined bedside. Complaining of peripheral edema. Feels that his edema has slightly improved. Denies any shortness of breath. Patient's chart, labs, images were reviewed and discussed with RN Vitals/I&O Vitals/I&O: Vital Signs Date Time Temp Pulse Resp B/P (MAP) Pulse Ox O2 Delivery O2 Flow Rate FiO2 08/02/21 08:00 Room Air 08/02/21 07:00 97.4 68 20 166/76 (106) 99 97.4 l I & O 08/01/21 08/01/21 08/02/21 15:00 23:00 07:00 Intake Total 240 ml 570 ml Output Total 400 ml 700 ml Balance -160 ml -130 ml Physical Exam General: Alert, Oriented X3, Cooperative Heart: Regular rate Lungs: Clear Skin: Other (Scrotal edema including upper and lower extremity edema bilaterally) Labs Labs: Laboratory Tests Test 08/01/21 12:05 08/01/21 12:37 08/01/21 12:40 08/01/21 13:10 White Blood Count 8.5 x10^3/uL (4.0-11.0) Red Blood Count 2.27 x10^6/uL (4.30-5.70) Hemoglobin 9.9 g/dL (13.0-17.5) Hematocrit 28.8 % (39.0-53.0) Mean Corpuscular Volume 127 fL (79-100) Mean Corpuscular Hemoglobin 43 pg (25-35) Mean Corpuscular Hemoglobin Concent 34 g/dL (31-37) Red Cell Distribution Width 14.3 % (11.5-14.5) Platelet Count 137 x10^3/uL (140-400) Neutrophils (%) (Auto) 77 % (31-73) Lymphocytes (%) (Auto) 11 % (24-48) Monocytes (%) (Auto) 11 % (0-9) Eosinophils (%) (Auto) 1 % (0-3) Basophils (%) (Auto) 1 % (0-3) Neutrophils # (Auto) 6.5 x10^3/uL (1.8-7.7) Lymphocytes # (Auto) 0.9 x10^3/uL (1.0-4.8) Monocytes # (Auto) 0.9 x10^3/uL (0.0-1.1) Eosinophils # (Auto) 0.0 x10^3/uL (0.0-0.7) Basophils # (Auto) 0.1 x10^3/uL (0.0-0.2) Platelet Estimate Decreased (ADEQUATE) Polychromasia Occasional Anisocytosis Slight Macrocytosis Mod Sodium Level 130 mmol/L (136-145) Potassium Level 4.0 mmol/L (3.5-5.1) Chloride Level 94 mmol/L (98-107) Carbon Dioxide Level 26 mmol/L (21-32) Anion Gap 10 (6-14) Blood Urea Nitrogen 4 mg/dL (8-26) Creatinine 0.8 mg/dL (0.7-1.3) Estimated GFR (Cockcroft-Gault) 101.9 BUN/Creatinine Ratio 5 (6-20) Glucose Level 133 mg/dL (70-99) Hemoglobin A1c 4.9 % (4.8-5.6) Calcium Level 7.7 mg/dL (8.5-10.1) Iron Level 72 ug/dL (65-175) Total Iron Binding Capacity 102 ug/dL (250-450) Iron Saturation 71 % (15-34) Total Bilirubin 4.4 mg/dL (0.2-1.0) Aspartate Amino Transf (AST/SGOT) 82 U/L (15-37) Alanine Aminotransferase (ALT/SGPT) 27 U/L (16-63) Alkaline Phosphatase 200 U/L (46-116) Troponin I High Sensitivity 9 ng/L (4-75) OV-Qgj-N-Type Natriuretic Peptide 251 pg/mL (0-124) Total Protein 6.7 g/dL (6.4-8.2) Albumin 2.4 g/dL (3.4-5.0) Albumin/Globulin Ratio 0.6 (1.0-1.7) Triglycerides Level 75 mg/dL (0-150) Cholesterol Level 52 mg/dL (0-200) LDL Cholesterol, Calculated 21 mg/dL (0-100) VLDL Cholesterol, Calculated 15 mg/dL (0-40) Non-HDL Cholesterol Calculated 36 mg/dL (0-129) HDL Cholesterol 16 mg/dL (40-60) Cholesterol/HDL Ratio 3.3 Lipase 81 U/L (73-393) Vitamin B12 Level > 2000 pg/mL (247-911) Hepatitis A IgM Antibody Nonreactive (Nonreactive) Hepatitis B Surface Antigen Nonreactive (Nonreactive) Hepatitis B Core IgM Antibody Nonreactive (Nonreactive) Hepatitis C IgG Antibody Nonreactive (Nonreactive) SARS-CoV-2 Antigen (Rapid) Negative (NEGATIVE) SARS-CoV-2 RNA (SOCRATES) Negative (Negative) Urine Collection Type Unknown Urine Color Mariah Urine Clarity Clear Urine pH 6.0 (<5.0-8.0) Urine Specific [place] <=1.005 (1.000-1.030) Urine Protein Negative mg/dL (NEG-TRACE) Urine Glucose (UA) Negative mg/dL (NEG) Urine Ketones (Stick) Negative mg/dL (NEG) Urine Blood Moderate (NEG) Urine Nitrite Negative (NEG) Urine Bilirubin Negative (NEG) Urine Urobilinogen Dipstick 1.0 mg/dL (0.2 mg/dL) Urine Leukocyte Esterase Trace (NEG) Urine RBC 3-5 /HPF (0-2) Urine WBC 1-4 /HPF (0-4) Urine Squamous Epithelial Cells Few /LPF Urine Bacteria 0 /HPF (0-FEW) Urine Hyaline Casts Moderate /HPF Urine Mucus Slight /LPF Urine Opiates Screen Neg (NEG) Urine Methadone Screen Neg (NEG) Urine Barbiturates Neg (NEG) Urine Phencyclidine Screen Neg (NEG) Urine Amphetamine/Methamphetamine Neg (NEG) Urine Benzodiazepines Screen Neg (NEG) Urine Cocaine Screen Neg (NEG) Urine Cannabinoids Screen Neg (NEG) Urine Ethyl Alcohol Pos (NEG) Ammonia 33 mcmol/L (11-34) Ethyl Alcohol Level 15 mg/dL (0-10) Test 08/01/21 14:31 08/02/21 08:22 Prothrombin Time 18.6 SEC (11.7-14.0) Prothromb Time International Ratio 1.6 (0.8-1.1) Glucose (Fingerstick) 128 mg/dL (70-99) Assessment and Plan Assessmemt and Plan Problems Medical Problems: (1) Generalized edema Status: Acute (2) History of alcoholism Status: Acute (3) Hyperbilirubinemia Status: Acute (4) Person under investigation for COVID-19 Status: Acute (5) Respiratory distress Status: Acute Comment Review of Relevant I have reviewed the following items deepak (where applicable) has been applied. Medications: Current Medications Medications (Trade) Dose Ordered Sig/Claus Route PRN Reason Start Time Stop Time Status Last Admin Dose Admin Thiamine HCl 100 mg/Dextrose 51 ml @ 102 mls/hr DAILY IV 08/01/21 14:00 08/01/21 14:37 Folic Acid (Folic Acid) 1 mg DAILY PO 08/01/21 14:00 08/02/21 09:56 Cyanocobalamin (Vitamin B-12 Inj) 1,000 mcg DAILY IM 08/01/21 13:15 08/02/21 10:00 Acetaminophen (Tylenol) 650 mg PRN Q4HRS PRN PO TEMP OVER 100.4F OR MILD PAIN 08/01/21 13:30 08/01/21 18:57 Lorazepam (Ativan) 0.5 mg PRN Q6HRS PRN PO ANXIETY / AGITATION 08/01/21 13:30 08/01/21 18:56 Furosemide (Lasix) 40 mg 1X ONCE IVP 08/02/21 07:45 08/02/21 07:46 DC 08/02/21 09:55 Justifications for Admission Other Justification EDEMA and ELEVATED TBILI GABY HAMLIN MD Aug 02, 2021 11:33
[2021-08-02 15:00] VITALS: BP 130/73
[2021-08-02] MEDS: THIAMINE INJ 100 MG in IV DEXTROSE 5% 50 ML IV SCH (15:00)
[2021-08-02 19:00] VITALS: BP 151/75
[2021-08-02 23:00] VITALS: BP 143/59
[2021-08-03 03:00] VITALS: BP 134/81
[2021-08-03 05:28] LABS: HEMATOCRIT 28.1 % (39.0-53.0); HEMOGLOBIN 9.4 g/dL (13.0-17.5); RED BLOOD COUNT 2.22 x10^6/uL (4.30-5.70); RED CELL DISTRIBUTION WIDTH 14.6 % (11.5-14.5)
[2021-08-03 05:53] LABS: ALBUMIN/GLOBULIN RATIO 0.5 (1.0-1.7); CALCIUM 7.7 mg/dL (8.5-10.1); CREATININE 0.8 mg/dL (0.7-1.3); GFR 101.9; POTASSIUM 4.3 mmol/L (3.5-5.1); TOTAL BILIRUBIN 5.5 mg/dL (0.2-1.0); TOTAL PROTEIN 6.2 g/dL (6.4-8.2)
[2021-08-03 07:00] VITALS: BP 154/73
[2021-08-03] MEDS: FUROSEMIDE 40 MG/4 ML VIAL. IVP SCH ×2 (09:53→14:37)
[2021-08-03] MEDS: FOLIC ACID 1 MG TABLET. PO SCH (09:53)
--- NOTE | 2021-08-03 10:37 | PDOC ---
Date of Service: DATE: 08/03/21 TIME: 10:32 Subjective: Subjective: Asks if he has cirrhosis. Asks how long he'll live. Says eating okay and urinated a lot yesterday. Notes hand are less puffy. Objective: Vital Signs: Vital Signs Date Time Temp Pulse Resp B/P (MAP) Pulse Ox O2 Delivery O2 Flow Rate FiO2 08/03/21 07:00 98.3 93 19 154/73 (100) 99 Room Air 98.3 Labs: Laboratory Tests Test 08/02/21 12:26 08/02/21 17:17 08/02/21 20:04 08/03/21 05:10 Glucose (Fingerstick) 186 mg/dL 132 mg/dL 175 mg/dL White Blood Count 8.0 x10^3/uL Red Blood Count 2.22 x10^6/uL Hemoglobin 9.4 g/dL Hematocrit 28.1 % Mean Corpuscular Volume 126 fL Mean Corpuscular Hemoglobin 42 pg Mean Corpuscular Hemoglobin Concent 34 g/dL Red Cell Distribution Width 14.6 % Platelet Count 117 x10^3/uL Sodium Level 132 mmol/L Potassium Level 4.3 mmol/L Chloride Level 97 mmol/L Carbon Dioxide Level 30 mmol/L Anion Gap 5 Blood Urea Nitrogen 9 mg/dL Creatinine 0.8 mg/dL Estimated GFR (Cockcroft-Gault) 101.9 BUN/Creatinine Ratio 11 Glucose Level 127 mg/dL Calcium Level 7.7 mg/dL Total Bilirubin 5.5 mg/dL Aspartate Amino Transf (AST/SGOT) 75 U/L Alanine Aminotransferase (ALT/SGPT) 17 U/L Alkaline Phosphatase 193 U/L Total Protein 6.2 g/dL Albumin 2.0 g/dL Albumin/Globulin Ratio 0.5 Thyroid Stimulating Hormone (TSH) 11.564 uIU/mL Free Thyroxine 1.23 ng/dL Test 08/03/21 07:17 Glucose (Fingerstick) 110 mg/dL URINE CULTURE Final Final LESS THAN 10,000 CFU/ML Normal genitourinary geoffrey, not indicative of infection on 08/03/21 at 0706 PE: GEN: NAD LUNGS: clear anteriorly HEART: RRR ABD: large, anasarca EXTREM: pitting edema in hands - improved NEURO/PSYCH: A & O 3, forgetful?, bit tremulous this morning (mild) A/P: Anasarca ?alcoholic liver disease - hepatic steatosis, trace ascites Elevated TSH, normal free T4 -- Echo ordered - await this. Receiving more Lasix - agree. Changed back to ROSA diet. pen[facility]entiary no alcohol. Justicifation of Admission Dx: Justifications for Admission: Justification of Admission Dx: Yes MIRIAM DIAZ Aug 03, 2021 10:37
[2021-08-03 11:00] VITALS: BP 141/68
--- NOTE | 2021-08-03 11:09 | NUR ---
[facility] following. Discussed with RN, pt from home, room air, cardiac diet, COVID-19 negative. PAT consult for ETOH use/abuse. Lasix being scheduled. Med Assist following for self pay status. [facility] will continue to follow. Addendum: 08/03/21 at 1223 by CRESENCIO NASSAR Sil ([email or web address]) met with pt, pt denied his 6-8 beers a day cause him any consequences. Pt provided with [employer] brochure if he becomes interested in obtaining services to address his alcohol use.
--- NOTE | 2021-08-03 12:39 | PDOC2 ---
CONSULT Date of Consult Date of Consult DATE: 08/03/21 TIME: 12:29 Reason for Consult Reason for Consult: Anemia and thrombocytopenia Referring Physician Referring Physician: Dr. Mendoza Identification/Chief Complaint Chief Complaint Shortness of breath and anasarca Source Source: Patient History of Present Illness Reason for Visit: Kannan Tomas is a 51-year-old male who has been admitted to the hospital with anasarca. Patient has medical history of hypertension and high BMI. He also has a significant alcohol use history and typically drinks 6-10 drinks daily. He presented to [facility] reporting increasing generalized edema and shortness of breath. He received further evaluation with CT which has shown presumed alcoholic steatohepatitis. Ascites is also been noted. He received lab studies which showed microcytic anemia and mild thrombocytopenia. Hematology consultation has been requested for further evaluation of these lab derangements. He has not had hematemesis or melena. GI consultation has been requested and it has been felt that he has alcoholic liver disease. Alcohol cessation has been recommended. Echo has also been recommended to exclude a cardiovascular etiology for fluid retention Social History Quit (1 week ago) ALCOHOL: heavy (6-8 beers daily, had two this morning) Drugs: None Current Problem List Problem List Problems Medical Problems: (1) Generalized edema Status: Acute (2) History of alcoholism Status: Acute (3) Hyperbilirubinemia Status: Acute (4) Person under investigation for COVID-19 Status: Acute (5) Respiratory distress Status: Acute Current Medications Current Medications Current Medications Ondansetron HCl (Zofran) 4 mg PRN Q8HRS PRN IVP NAUSEA/VOMITING; Start 08/01/21 at 13:15; Stop 08/02/21 at 13:14; Status Cancel Thiamine HCl 100 mg/Dextrose 51 ml @ 102 mls/hr DAILY IV Last administered on 08/02/21at 15:00; Start 08/01/21 at 14:00 Folic Acid (Folic Acid) 1 mg DAILY PO Last administered on 08/03/21at 09:53; Start 08/01/21 at 14:00 Cyanocobalamin (Vitamin B-12 Inj) 1,000 mcg DAILY IM Last administered on 08/02/21at 10:00; Start 08/01/21 at 13:15; Stop 08/03/21 at 08:06; Status DC Sennosides (Senna) 17.2 mg PRN BID PRN PO CONSTIPATION; Start 08/01/21 at 13:30 Docusate Sodium (Colace) 100 mg PRN DAILY PRN PO HARD STOOLS; Start 08/01/21 at 13:30 Ondansetron HCl (Zofran) 4 mg PRN Q6HRS PRN IVP NAUSEA/VOMITING; Start 08/01/21 at 13:30 Dextrose (Dextrose 50%-Water Syringe) 12.5 gm PRN Q15MIN PRN IV SEE COMMENTS; Start 08/01/21 at 13:30 Acetaminophen (Tylenol) 650 mg PRN Q4HRS PRN PO TEMP OVER 100.4F OR MILD PAIN Last administered on 08/01/21at 18:57; Start 08/01/21 at 13:30 Lorazepam (Ativan) 0.5 mg PRN Q6HRS PRN PO ANXIETY / AGITATION Last administered on 08/01/21at 18:56; Start 08/01/21 at 13:30 Lorazepam (Ativan Inj) 0.25 mg PRN Q4HRS PRN IV ANXIETY / AGITATION; Start 08/01/21 at 13:30 Prochlorperazine Edisylate (Compazine) 10 mg PRN Q6HRS PRN IV NAUSEA/VOMITING- 2ND CHOICE; Start 08/01/21 at 13:30 Zolpidem Tartrate (Ambien) 2.5 mg PRN QHS PRN PO INSOMNIA; Start 08/01/21 at 13:30 Furosemide (Lasix) 40 mg 1X ONCE IVP Last administered on 08/02/21at 09:55; Start 08/02/21 at 07:45; Stop 08/02/21 at 07:46; Status DC Furosemide (Lasix) 40 mg BID92 IVP Last administered on 08/03/21at 09:53; Start 08/03/21 at 08:15 Allergies Allergies: Coded Allergies: bee venom protein (honey bee) (Verified Allergy, Severe, 08/02/21) ROS Review of System Negative unless stated otherwise in HPI Physical Exam Physical Exam General: Awake, alert, no distress Head: Atraumatic, no conjunctival icterus, normal oral cavity mucosa Neck: Supple, no lymphadenopathy Chest: No trauma noted Cardiovascular: Regular rhythm, normal rate, no murmurs Respiratory: Bilateral air entry noted, lungs clear to auscultation bilaterally. No accessory muscle use Abdominal: Abdomen is distended. Bowel sounds were normal. No hepatomegaly or splenomegaly Musculoskeletal: No deformity noted Extremities: Bilateral edema Skin: No rash or lesions Neurologic: Alert and oriented x3, no grossly evident neurologic deficits noted. Full neurological exam was not performed Psychiatric: Appropriate mood and affect Vitals VITALS Vital Signs Date Time Temp Pulse Resp B/P (MAP) Pulse Ox O2 Delivery O2 Flow Rate FiO2 08/03/21 11:00 98.4 92 19 141/68 (92) 97 Room Air 98.4 Labs Labs Laboratory Tests Test 08/01/21 12:37 08/01/21 12:40 08/01/21 13:10 08/01/21 14:31 SARS-CoV-2 RNA (SOCRATES) Negative (Negative) Urine Collection Type Unknown Urine Color Mariah Urine Clarity Clear Urine pH 6.0 (<5.0-8.0) Urine Specific [place] <=1.005 (1.000-1.030) Urine Protein Negative mg/dL (NEG-TRACE) Urine Glucose (UA) Negative mg/dL (NEG) Urine Ketones (Stick) Negative mg/dL (NEG) Urine Blood Moderate (NEG) Urine Nitrite Negative (NEG) Urine Bilirubin Negative (NEG) Urine Urobilinogen Dipstick 1.0 mg/dL (0.2 mg/dL) Urine Leukocyte Esterase Trace (NEG) Urine RBC 3-5 /HPF (0-2) Urine WBC 1-4 /HPF (0-4) Urine Squamous Epithelial Cells Few /LPF Urine Bacteria 0 /HPF (0-FEW) Urine Hyaline Casts Moderate /HPF Urine Mucus Slight /LPF Urine Opiates Screen Neg (NEG) Urine Methadone Screen Neg (NEG) Urine Barbiturates Neg (NEG) Urine Phencyclidine Screen Neg (NEG) Urine Amphetamine/Methamphetamine Neg (NEG) Urine Benzodiazepines Screen Neg (NEG) Urine Cocaine Screen Neg (NEG) Urine Cannabinoids Screen Neg (NEG) Urine Ethyl Alcohol Pos (NEG) Ammonia 33 mcmol/L (11-34) Ethyl Alcohol Level 15 mg/dL (0-10) Prothrombin Time 18.6 SEC (11.7-14.0) Prothromb Time International Ratio 1.6 (0.8-1.1) Test 08/02/21 08:22 08/02/21 12:26 08/02/21 17:17 08/02/21 20:04 Glucose (Fingerstick) 128 mg/dL (70-99) 186 mg/dL (70-99) 132 mg/dL (70-99) 175 mg/dL (70-99) Test 08/03/21 05:10 08/03/21 07:17 08/03/21 11:31 White Blood Count 8.0 x10^3/uL (4.0-11.0) Red Blood Count 2.22 x10^6/uL (4.30-5.70) Hemoglobin 9.4 g/dL (13.0-17.5) Hematocrit 28.1 % (39.0-53.0) Mean Corpuscular Volume 126 fL (79-100) Mean Corpuscular Hemoglobin 42 pg (25-35) Mean Corpuscular Hemoglobin Concent 34 g/dL (31-37) Red Cell Distribution Width 14.6 % (11.5-14.5) Platelet Count 117 x10^3/uL (140-400) Sodium Level 132 mmol/L (136-145) Potassium Level 4.3 mmol/L (3.5-5.1) Chloride Level 97 mmol/L (98-107) Carbon Dioxide Level 30 mmol/L (21-32) Anion Gap 5 (6-14) Blood Urea Nitrogen 9 mg/dL (8-26) Creatinine 0.8 mg/dL (0.7-1.3) Estimated GFR (Cockcroft-Gault) 101.9 BUN/Creatinine Ratio 11 (6-20) Glucose Level 127 mg/dL (70-99) Calcium Level 7.7 mg/dL (8.5-10.1) Total Bilirubin 5.5 mg/dL (0.2-1.0) Aspartate Amino Transf (AST/SGOT) 75 U/L (15-37) Alanine Aminotransferase (ALT/SGPT) 17 U/L (16-63) Alkaline Phosphatase 193 U/L (46-116) Total Protein 6.2 g/dL (6.4-8.2) Albumin 2.0 g/dL (3.4-5.0) Albumin/Globulin Ratio 0.5 (1.0-1.7) Thyroid Stimulating Hormone (TSH) 11.564 uIU/mL (0.358-3.74) Free Thyroxine 1.23 ng/dL (0.76-1.46) Glucose (Fingerstick) 110 mg/dL (70-99) 139 mg/dL (70-99) Laboratory Tests Test 08/02/21 17:17 08/02/21 20:04 08/03/21 05:10 08/03/21 07:17 Glucose (Fingerstick) 132 mg/dL (70-99) 175 mg/dL (70-99) 110 mg/dL (70-99) White Blood Count 8.0 x10^3/uL (4.0-11.0) Red Blood Count 2.22 x10^6/uL (4.30-5.70) Hemoglobin 9.4 g/dL (13.0-17.5) Hematocrit 28.1 % (39.0-53.0) Mean Corpuscular Volume 126 fL (79-100) Mean Corpuscular Hemoglobin 42 pg (25-35) Mean Corpuscular Hemoglobin Concent 34 g/dL (31-37) Red Cell Distribution Width 14.6 % (11.5-14.5) Platelet Count 117 x10^3/uL (140-400) Sodium Level 132 mmol/L (136-145) Potassium Level 4.3 mmol/L (3.5-5.1) Chloride Level 97 mmol/L (98-107) Carbon Dioxide Level 30 mmol/L (21-32) Anion Gap 5 (6-14) Blood Urea Nitrogen 9 mg/dL (8-26) Creatinine 0.8 mg/dL (0.7-1.3) Estimated GFR (Cockcroft-Gault) 101.9 BUN/Creatinine Ratio 11 (6-20) Glucose Level 127 mg/dL (70-99) Calcium Level 7.7 mg/dL (8.5-10.1) Total Bilirubin 5.5 mg/dL (0.2-1.0) Aspartate Amino Transf (AST/SGOT) 75 U/L (15-37) Alanine Aminotransferase (ALT/SGPT) 17 U/L (16-63) Alkaline Phosphatase 193 U/L (46-116) Total Protein 6.2 g/dL (6.4-8.2) Albumin 2.0 g/dL (3.4-5.0) Albumin/Globulin Ratio 0.5 (1.0-1.7) Thyroid Stimulating Hormone (TSH) 11.564 uIU/mL (0.358-3.74) Free Thyroxine 1.23 ng/dL (0.76-1.46) Test 08/03/21 11:31 Glucose (Fingerstick) 139 mg/dL (70-99) Assessment/Plan Assessment/Plan Assessment: Macrocytic anemia Thrombocytopenia Ascites Alcoholic hepatitis Alcohol abuse High BMI Recommendations: -Reviewed results of B12, iron studies which were not suggestive of iron or B12 deficiency -Ordered EPO, LDH, haptoglobin, reticulocyte count -Suspect anemia and thrombocytopenia are secondary to heavy alcohol use -Agree with complete alcohol cessation -Continue work-up per GI -Additional inpatient hematology recommendations. Plan outpatient follow-up in 2 months to review CBC after alcohol use cessation Matthew Rebolledo MD Medical Oncology/Hematology Ph: [phone] RUPERTO REBOLLEDO MD Aug 03, 2021 12:39
[2021-08-03] MEDS: THIAMINE INJ 100 MG in IV DEXTROSE 5% 50 ML IV SCH (14:37)
[2021-08-03 15:00] VITALS: BP 126/62
--- NOTE | 2021-08-03 15:31 | CARD ---
MR#: [id number] Date of Study: 08/03/2021 Ordering Physician: GABY HAMLIN, Referring Physician: GABY HAMLIN, Tech: Chet Fair [facility] APPROVED REPORT EXAM: Two-dimensional and M-mode echocardiogram with Doppler and color Doppler. Other Information Quality : Technically LimitedHR: 89bpm Rhythm : NSRTechnically limited study due to body habitus and smoking. INDICATION Edema - Anasarca RISK FACTORS Obesity Diabetes 2D DIMENSIONS Left Atrium(2D)4.2 (1.6-4.0cm)IVSd1.1 (0.7-1.1cm) Aortic Root(2D)3.3 (2.0-3.7cm)LVDd5.8 (3.9-5.9cm) LVOT Diameter2.1 (1.8-2.4cm)PWd1.1 (0.7-1.1cm) LVDs3.5 (2.5-4.0cm)FS (%) 40.8 % SV119.8 mlLVEF(%)70.8 (>50%) Aortic Valve AoV Peak Neto.266.4cm/sAoV VTI42.6cm AO Peak GR.28.4mmHgLVOT Peak Neto.126.3cm/s LVOT VTI 24.62cmAO Mean GR.15mmHg LUIS A (VMAX)1.19vv4DZE (VTI)1.93cm2 Mitral Valve MV E Oibgzcqf692.2cm/sMV DECEL [id number] MV A Ansvslqy640.5cm/sMV MEE09ea E/A Ratio0.9MVA (PHT)2.90cm2 TDI E/Lateral E'12.2E/Medial E'15.5 Pulmonary Valve PV Peak Gtjjwtnc336.0cm/sPV Peak Grad.17mmHg Tricuspid Valve TR P. Movutuub763mm/sTR Peak Gr.21mmHg Pulmonary Vein S1 Trtrmvha14.7cm/sD2 Bazljgux21.4cm/s LEFT VENTRICLE The left ventricle is normal size. There is normal left ventricular wall thickness. The left ventricu lar systolic function is normal. The ejection fraction is 60-65%. There is normal LV segmental wall m otion. Transmitral Doppler flow pattern is Grade I-abnormal relaxation pattern. No left ventricle thr ombus noted on this study. There is no ventricular septal defect visualized. There is no left ventric ular aneurysm. There is no mass noted in the left ventricle. RIGHT VENTRICLE The right ventricle is normal size. There is normal right ventricular wall thickness. The right ventr icular systolic function is normal. ATRIA The left atrium is mildly dilated. The right atrium size is normal. The interatrial septum is intact with no evidence for an atrial septal defect or patent foramen ovale as noted on 2-D or Doppler imagi ng. AORTIC VALVE The aortic valve is not well seen. Doppler and Color Flow revealed no significant aortic regurgitatio n. There is no significant aortic valvular stenosis. There is no aortic valvular vegetation. MITRAL VALVE The mitral valve is normal in structure and function. There is no evidence of mitral valve prolapse. There is no mitral valve stenosis. Doppler and Color Flow revealed no mitral valve regurgitation note d. TRICUSPID VALVE The tricuspid vave is not well visualized. Doppler and Color Flow revealed trace tricuspid regurgitat ion. There is no tricuspid valve prolapse or vegetation. There is no tricuspid valve stenosis. PULMONIC VALVE The pulmonic valve is not well seen. Doppler and Color Flow revealed no pulmonic valvular regurgitati on. There is no pulmonic valvular stenosis. GREAT VESSELS The aortic root is normal in size. Subcostal views nondiagnostic due to hepatomegaly. PERICARDIAL EFFUSION There is no evidence of significant pericardial effusion. Critical Notification Critical Value: No <Conclusion> The left ventricular systolic function is normal. The ejection fraction is 60-65%. There is normal LV segmental wall motion. Transmitral Doppler flow pattern is Grade I-abnormal relaxation pattern. Trace tricuspid regurgitation. There is no evidence of significant pericardial effusion. Signed by : Surinder Fernandez, Electronically Approved : 08/03/2021 15:30:55
--- NOTE | 2021-08-03 17:01 | PDOC ---
[employer] PROGRESS NOTE Date of Service DOS: DATE: 08/03/21 TIME: 16:57 Chief Complaint Chief Complaint Echo on 08/03/2021 shows grade 1 diastolic CHF Acute on chronic volume overload Acute electrolyte derrangement - hyponatremia and hypochloremia Anasarca Hyperbilirubinemia Pancytopenia Morbid Obesity Hepatic steatosis Hx of DM Admit to hospitalist for further management GI consult ABD imaging - US and CT if unable to visualize Appreciate hematology recommendationsto obtain equal, LDH, haptoglobin and reticulocyte labs and recommend outpatient follow-up in 2 months to review CBC after cessation of alcohol use B1/B12/folate supplementation IV Diuresis daily Lovenox and SCD for DVT prophylaxis ADA diet FULL code History of Present Illness History of Present Illness 51 yo M with PMHx of DM, obesity who comes in with worsening shortness of breath and lower extremity swelling that has been happening over several weeks. Before this incident, patient was seen at [facility] ER and was told to see a liver specialist because he likely has liver disease. He was given a diuretic and sent home. He has not followed up with those recommendations and therefore he decided to come to [facility]. He does endorse nightly 6-8 beers of drinking. Patient states over the past several weeks she has noticed that he has become more short of air with any exertion and does exhibit mild shortness of air at rest. Denies chest pain, diarrhea, hematemesis, melena, or constipation. He does endorse weight gain. He is COVID vaccinated. 08/02/2021 No acute events overnight. Patient seen examined bedside. Complaining of peripheral edema. Feels that his edema has slightly improved. Denies any shortness of breath. Patient's chart, labs, images were reviewed and discussed with RN 08/03/2021 No acute events overnight. Lasix administered yesterday. Unable to quantify but patient states that he has been urinating a lot. Scrotal edema. Upper extremity edema as well. Pending echo. Patient's chart, labs, images were reviewed and discussed with RN Vitals/I&O Vitals/I&O: Vital Signs Date Time Temp Pulse Resp B/P (MAP) Pulse Ox O2 Delivery O2 Flow Rate FiO2 08/03/21 15:00 98.6 89 18 126/62 (83) 98 Room Air 98.6 I & O 11/01/1708/02/21 08/03/21 15:00 23:00 07:00 Intake Total 900 ml Output Total 250 ml 200 ml Balance -250 ml 700 ml Physical Exam General: Alert, Oriented X3, Cooperative Heart: Regular rate Lungs: Clear Skin: Other (Scrotal edema including upper and lower extremity edema bila terally) Labs Labs: Laboratory Tests Test 08/02/21 17:17 08/02/21 20:04 08/03/21 05:10 08/03/21 07:17 Glucose (Fingerstick) 132 mg/dL (70-99) 175 mg/dL (70-99) 110 mg/dL (70-99) White Blood Count 8.0 x10^3/uL (4.0-11.0) Red Blood Count 2.18 x10^6/uL (4.30-5.70) Hemoglobin 9.4 g/dL (13.0-17.5) Hematocrit 28.1 % (39.0-53.0) Mean Corpuscular Volume 126 fL (79-100) Mean Corpuscular Hemoglobin 42 pg (25-35) Mean Corpuscular Hemoglobin Concent 34 g/dL (31-37) Red Cell Distribution Width 14.6 % (11.5-14.5) Platelet Count 117 x10^3/uL (140-400) Absolute Reticulocyte Count 0.059 x10^6/uL (0.020-0.120) Percent Reticulocyte Count 2.7 % (0.5-2.3) Immature Reticulocyte Fraction 0.52 (0.20-0.60) Sodium Level 132 mmol/L (136-145) Potassium Level 4.3 mmol/L (3.5-5.1) Chloride Level 97 mmol/L (98-107) Carbon Dioxide Level 30 mmol/L (21-32) Anion Gap 5 (6-14) Blood Urea Nitrogen 9 mg/dL (8-26) Creatinine 0.8 mg/dL (0.7-1.3) Estimated GFR (Cockcroft-Gault) 101.9 BUN/Creatinine Ratio 11 (6-20) Glucose Level 127 mg/dL (70-99) Calcium Level 7.7 mg/dL (8.5-10.1) Total Bilirubin 5.5 mg/dL (0.2-1.0) Aspartate Amino Transf (AST/SGOT) 75 U/L (15-37) Alanine Aminotransferase (ALT/SGPT) 17 U/L (16-63) Alkaline Phosphatase 193 U/L (46-116) Lactate Dehydrogenase 240 U/L (85-227) Total Protein 6.2 g/dL (6.4-8.2) Albumin 2.0 g/dL (3.4-5.0) Albumin/Globulin Ratio 0.5 (1.0-1.7) Thyroid Stimulating Hormone (TSH) 11.564 uIU/mL (0.358-3.74) Free Thyroxine 1.23 ng/dL (0.76-1.46) Test 08/03/21 11:31 Glucose (Fingerstick) 139 mg/dL (70-99) Assessment and Plan Assessmemt and Plan Problems Medical Problems: (1) Generalized edema Status: Acute (2) History of alcoholism Status: Acute (3) Hyperbilirubinemia Status: Acute (4) Person under investigation for COVID-19 Status: Acute (5) Respiratory distress Status: Acute Comment Review of Relevant I have reviewed the following items deepak (where applicable) has been applied. Medications: Current Medications Medications (Trade) Dose Ordered Sig/Claus Route PRN Reason Start Time Stop Time Status Last Admin Dose Admin Furosemide (Lasix) 40 mg [id number] IVP 08/03/21 08:15 08/03/21 14:37 Justifications for Admission Other Justification EDEMA and ELEVATED TBILI GABY HAMLIN MD Aug 03, 2021 17:01
[2021-08-03 19:00] VITALS: BP 111/66
[2021-08-03] MEDS: NYSTATIN TOPICAL POWDER 15GM BOTTLE. TP SCH (21:39)
[2021-08-03] MEDS: NYSTATIN 100,000 UNIT/GM TOPICAL OINTMENT 15GM TUBE. TP SCH (21:39)
[2021-08-03 23:00] VITALS: BP 124/62
[2021-08-04 03:00] VITALS: BP 138/60
[2021-08-04 07:00] VITALS: BP 147/80
[2021-08-04] MEDS: FUROSEMIDE 40 MG/4 ML VIAL. IVP SCH ×2 (08:16→15:00)
[2021-08-04] MEDS: NYSTATIN TOPICAL POWDER 15GM BOTTLE. TP SCH ×2 (08:17→21:45)
[2021-08-04] MEDS: FOLIC ACID 1 MG TABLET. PO SCH (08:17)
[2021-08-04] MEDS: NYSTATIN 100,000 UNIT/GM TOPICAL OINTMENT 15GM TUBE. TP SCH ×2 (08:17→21:45)
[2021-08-04] MEDS ORDERED: THIAMINE 100 MG TABLET. PO SCH (09:00)
--- NOTE | 2021-08-04 10:31 | PDOC ---
[employer] PROGRESS NOTE Date of Service DOS: DATE: 08/04/21 TIME: 10:28 Chief Complaint Chief Complaint Probable advanced liver disease secondary to alcohol Coagulopathy Ascites Acute on chronic volume overload Acute electrolyte derrangement - hyponatremia and hypochloremia Anasarca Hyperbilirubinemia Pancytopenia Morbid Obesity Hepatic steatosis Hx of DM History of Present Illness History of Present Illness Lab in 03/18/2021 Patient seen and examined He is up in the chair He has massive scrotal edema and penile edema as well Admits to drinking 8 beers a day but I suspect he drinks a lot more than that (his INR is 1.6) I suspect he has advanced liver disease 51 yo M with PMHx of DM, obesity who comes in with worsening shortness of breath and lower extremity swelling that has been happening over several weeks. Before this incident, patient was seen at [facility] ER and was told to see a liver spe cialist because he likely has liver disease. He was given a diuretic and sent home. He has not followed up with those recommendations and therefore he decided to come to [facility]. He does endorse nightly 6-8 beers of drinking. Patient states over the past several weeks she has noticed that he has become more short of air with any exertion and does exhibit mild shortness of air at rest. Denies chest pain, diarrhea, hematemesis, melena, or constipation. He does endorse weight gain. He is COVID vaccinated. 08/02/2021 No acute events overnight. Patient seen examined bedside. Complaining of peripheral edema. Feels that his edema has slightly improved. Denies any shortness of breath. Patient's chart, labs, images were reviewed and discussed with RN 08/03/2021 No acute events overnight. Lasix administered yesterday. Unable to quantify but patient states that he has been urinating a lot. Scrotal edema. Upper extremity edema as well. Pending echo. Patient's chart, labs, images were reviewed and discussed with RN Vitals/I&O Vitals/I&O: Vital Signs Date Time Temp Pulse Resp B/P (MAP) Pulse Ox O2 Delivery O2 Flow Rate FiO2 08/04/21 08:15 Room Air 08/04/21 07:00 98.3 88 22 147/80 (102) 98 98.3 l I & O 08/03/21 08/03/21 08/04/21 15:00 23:00 07:00 Intake Total 400 ml 800 ml 100 ml Output Total 950 ml 1300 ml Balance -550 ml -500 ml 100 ml Physical Exam General: Alert, Oriented X3, Cooperative Heart: Regular rate Lungs: Clear Skin: Other (Scrotal edema including upper and lower extremity edema bilaterally) Labs Labs: Laboratory Tests Test 08/03/21 11:31 08/03/21 13:40 08/03/21 17:02 08/03/21 20:47 Glucose (Fingerstick) 139 mg/dL (70-99) 125 mg/dL (70-99) 175 mg/dL (70-99) Haptoglobin 84 mg/dL (29-370) Test 08/04/21 07:23 Glucose (Fingerstick) 125 mg/dL (70-99) Assessment and Plan Assessmemt and Plan Problems Medical Problems: (1) Generalized edema Status: Acute (2) History of alcoholism Status: Acute (3) Hyperbilirubinemia Status: Acute (4) Person under investigation for COVID-19 Status: Acute (5) Respiratory distress Status: Acute Probable advanced liver disease secondary to alcohol Coagulopathy Ascites Acute on chronic volume overload Acute electrolyte derrangement - hyponatremia and hypochloremia Anasarca Hyperbilirubinemia Pancytopenia Morbid Obesity Hepatic steatosis Hx of DM Plan Try to keep the scrotum elevated if possible Await further GI input I told him to please quit drinking alcohol Trend labs Home meds DVT prophylaxis (with his INR being 1.6 he is already anticoagulated on his own) Full code Long-term prognosis extremely guarded suspect less than a couple of years Comment Review of Relevant I have reviewed the following items deepak (where applicable) has been applied. Medications: Current Medications Medications (Trade) Dose Ordered Sig/Claus Route PRN Reason Start Time Stop Time Status Last Admin Dose Admin Nystatin (Mycostatin) 1 taylor BID TP 08/03/21 21:00 08/04/21 08:17 Nystatin (Nystop) 1 taylor BID TP 08/03/21 21:00 08/04/21 08:17 Justifications for Admission Other Justification EDEMA and ELEVATED TBILI CASTALPANIAL K III DO Aug 04, 2021 10:31
[2021-08-04 11:00] VITALS: BP 146/67
[2021-08-04] MEDS: THIAMINE INJ 100 MG in IV DEXTROSE 5% 50 ML IV SCH (11:09)
[2021-08-04 15:00] VITALS: BP 129/65
[2021-08-04 19:00] VITALS: BP 140/66
[2021-08-04 23:00] VITALS: BP 130/65
[2021-08-05 03:12] VITALS: BP 150/76
[2021-08-05 07:00] VITALS: BP 166/78
[2021-08-05] MEDS: FOLIC ACID 1 MG TABLET. PO SCH (09:42)
[2021-08-05] MEDS: NYSTATIN TOPICAL POWDER 15GM BOTTLE. TP SCH ×2 (09:43→21:49)
[2021-08-05] MEDS: FUROSEMIDE 40 MG/4 ML VIAL. IVP SCH ×2 (09:43→14:46)
[2021-08-05] MEDS: THIAMINE INJ 100 MG in IV DEXTROSE 5% 50 ML IV SCH (09:43)
[2021-08-05] MEDS: NYSTATIN 100,000 UNIT/GM TOPICAL OINTMENT 15GM TUBE. TP SCH ×2 (09:43→21:00)
--- NOTE | 2021-08-05 10:24 | PDOC ---
[employer] PROGRESS NOTE Date of Service DOS: DATE: 08/05/21 TIME: 10:22 Chief Complaint Chief Complaint Probable advanced liver disease secondary to alcohol Coagulopathy Ascites Acute on chronic volume overload Acute electrolyte derrangement - hyponatremia and hypochloremia Anasarca Hyperbilirubinemia Pancytopenia Morbid Obesity Hepatic steatosis Hx of DM History of Present Illness History of Present Illness 08/05/2021 Patient seen and examined He is up in the chair Still has massive scrotal edema Still swollen in his arms and legs but slightly improved Somewhat anxious He states he wants to quit drinking Discussed with RN Chart Lab in 03/18/2021 Patient seen and examined He is up in the chair He has massive scrotal edema and penile edema as well Admits to drinking 8 beers a day but I suspect he drinks a lot more than that (his INR is 1.6) I suspect he has advanced liver disease 51 yo M with PMHx of DM, obesity who comes in with worsening shortness of breath and lower extremity swelling that has been happening over several weeks. Before this incident, patient was seen at [facility] ER and was told to see a liver specialist because he likely has liver disease. He was given a diuretic and sent home. He has not followed up with those recommendations and therefore he decided to come to [facility]. He does endorse nightly 6-8 beers of drinking. Patient states over the past several weeks she has noticed that he has become more short of air with any exertion and does exhibit mild shortness of air at rest. Denies chest pain, diarrhea, hematemesis, melena, or constipation. He does endorse weight gain. He is COVID vaccinated. 08/02/2021 No acute events overnight. Patient seen examined bedside. Complaining of peripheral edema. Feels that his edema has slightly improved. Denies any shortness of breath. Patient's chart, labs, images were reviewed and discussed with RN 08/03/2021 No acute events overnight. Lasix administered yesterday. Unable to quantify but patient states that he has been urinating a lot. Scrotal edema. Upper extremity edema as well. Pending echo. Patient's chart, labs, images were reviewed and discussed with RN Vitals/I&O Vitals/I&O: Vital Signs Date Time Temp Pulse Resp B/P (MAP) Pulse Ox O2 Delivery O2 Flow Rate FiO2 08/05/21 07:00 97.8 86 20 166/78 (107) 99 Room Air 97.8 I & O 08/04/21 08/04/21 08/05/21 15:00 23:00 07:00 Intake Total 240 ml Output Total 625 ml 900 ml 250 ml Balance -385 ml -900 ml -250 ml Physical Exam General: Alert, Oriented X3, Cooperative Heart: Regular rate Lungs: Clear Skin: Other (Scrotal edema including upper and lower extremity edema bilaterally) Labs Labs: Laboratory Tests Test 08/04/21 12:04 08/04/21 16:47 08/04/21 20:16 08/05/21 08:13 Glucose (Fingerstick) 136 mg/dL (70-99) 146 mg/dL (70-99) 152 mg/dL (70-99) 133 mg/dL (70-99) Assessment and Plan Assessmemt and Plan Problems Medical Problems: (1) Generalized edema Status: Acute (2) History of alcoholism Status: Acute (3) Hyperbilirubinemia Status: Acute (4) Person under investigation for COVID-19 Status: Acute (5) Respiratory distress Status: Acute Probable advanced liver disease secondary to alcohol Coagulopathy Ascites Acute on chronic volume overload Acute electrolyte derrangement - hyponatremia and hypochloremia Anasarca Hyperbilirubinemia Pancytopenia Morbid Obesity Hepatic steatosis Hx of DM Plan We will try 40mg more IV Lasix today Try to keep the scrotum elevated if possible Await further GI input I told him to please quit drinking alcohol and he agrees to Trend labs Home meds DVT prophylaxis (with his INR being 1.6 he is already anticoagulated on his own) Full code With his low albumin and high INR I suspect his synthetic function is very poor so long-term prognosis extremely guarded suspect less than a couple of years and I explained this to him Comment Review of Relevant I have reviewed the following items deepak (where applicable) has been applied. Justifications for Admission Other Justification EDEMA and ELEVATED TBIAGUSTINA MARTE III DO Aug 05, 2021 10:24
[2021-08-05 11:00] VITALS: BP 135/76
[2021-08-05 15:00] VITALS: BP 150/57
[2021-08-05 19:00] VITALS: BP 119/60
[2021-08-05] MEDS: ACETAMINOPHEN 325 MG TABLET. PO PRN (21:49)
[2021-08-06] MEDS: LEVOTHYROXINE 25 MCG TABLET. PO SCH (06:15)
[2021-08-06 07:00] VITALS: BP 144/54
[2021-08-06] MEDS ORDERED: THIAMINE 100 MG TABLET. PO SCH (09:00)
[2021-08-06] MEDS: NYSTATIN 100,000 UNIT/GM TOPICAL OINTMENT 15GM TUBE. TP SCH ×2 (09:04→20:40)
[2021-08-06] MEDS: NYSTATIN TOPICAL POWDER 15GM BOTTLE. TP SCH ×2 (09:04→20:36)
[2021-08-06] MEDS: FOLIC ACID 1 MG TABLET. PO SCH (09:04)
[2021-08-06] MEDS: FUROSEMIDE 40 MG/4 ML VIAL. IVP SCH ×2 (09:04→15:20)
[2021-08-06 11:00] VITALS: BP 128/57
--- NOTE | 2021-08-06 11:00 | PDOC ---
[employer] PROGRESS NOTE Date of Service DOS: DATE: 08/06/21 TIME: 10:56 Chief Complaint Chief Complaint Probable advanced liver disease secondary to alcohol Coagulopathy Hypoalbuminemia Poor hepatic synthetic function Ascites Acute on chronic volume overload Acute electrolyte derrangement - hyponatremia and hypochloremia Anasarca Hyperbilirubinemia Pancytopenia Morbid Obesity Hepatic steatosis Hx of DM History of Present Illness History of Present Illness 08/06/2021 Patient seen and examined He is in bed Quite anxious about his prognosis He had me call his mom [place] She does not want him to come home she cannot take care of him anymore and does not want to be an enabler States she found 60 extra large cans of beer in his car plus numerous bottles of other liquors Patient now admits he has been drinking a lot more than what he told us I explained to him and his mom is close to qualifying for hospice if he does not quit drinking His mom explains that the just lost her to alcoholism as well within the past couple years Patient still has massive scrotal edema and penile edema Discussed with case management discussed with RN 08/05/2021 Patient seen and examined He is up in the chair Still has massive scrotal edema Still swollen in his arms and legs but slightly improved Somewhat anxious He states he wants to quit drinking Discussed with RN Chart Lab in 03/18/2021 Patient seen and examined He is up in the chair He has massive scrotal edema and penile edema as well Admits to drinking 8 beers a day but I suspect he drinks a lot more than that (his INR is 1.6) I suspect he has advanced liver disease 51 yo M with PMHx of DM, obesity who comes in with worsening shortness of breath and lower extremity swelling that has been happening over several weeks. Before this incident, patient was seen at [facility] ER and was told to see a liver specialist because he likely has liver disease. He was given a diuretic and sent home. He has not followed up with those recommendations and therefore he decided to come to [facility]. He does endorse nightly 6-8 beers of drinking. Patient states over the past several weeks she has noticed that he has become more short of air with any exertion and does exhibit mild shortness of air at rest. Denies chest pain, diarrhea, hematemesis, melena, or constipation. He does endorse weight gain. He is COVID vaccinated. 08/02/2021 No acute events overnight. Patient seen examined bedside. Complaining of peripheral edema. Feels that his edema has slightly improved. Denies any shortness of breath. Patient's chart, labs, images were reviewed and discussed with RN 08/03/2021 No acute events overnight. Lasix administered yesterday. Unable to quantify but patient states that he has been urinating a lot. Scrotal edema. Upper extremity edema as well. Pending echo. Patient's chart, labs, images were reviewed and discussed with RN Vitals/I&O Vitals/I&O: Vital Signs Date Time Temp Pulse Resp B/P (MAP) Pulse Ox O2 Delivery O2 Flow Rate FiO2 08/06/21 07:00 97.6 86 18 144/54 (84) 98 Room Air 97.6 I & O 08/05/21 08/05/21 08/06/21 15:00 23:00 07:00 Output Total 250 ml 650 ml 300 ml Balance -250 ml -650 ml -300 ml Physical Exam General: Alert, Oriented X3, Cooperative Heart: Regular rate Lungs: Clear Skin: Other (Scrotal edema including upper and lower extremity edema bilaterally) Labs Labs: Laboratory Tests Test 08/05/21 12:05 08/05/21 16:48 08/05/21 20:22 08/06/21 07:44 Glucose (Fingerstick) 164 mg/dL (70-99) 163 mg/dL (70-99) 160 mg/dL (70-99) 107 mg/dL (70-99) Assessment and Plan Assessmemt and Plan Problems Medical Problems: (1) Generalized edema Status: Acute (2) History of alcoholism Status: Acute (3) Hyperbilirubinemia Status: Acute (4) Person under investigation for COVID-19 Status: Acute (5) Respiratory distress Status: Acute Probable advanced liver disease secondary to severe alcohol abuse (he now admits he has been drinking a lot more than he told was originally) Coagulopathy Hypoalbuminemia Poor hepatic synthetic function Hypoalbuminemia Poor hepatic synthetic function Ascites Acute on chronic volume overload Acute electrolyte derrangement - hyponatremia and hypochloremia Anasarca Hyperbilirubinemia Pancytopenia Morbid Obesity Hepatic steatosis Hx of DM Plan I am going to try some more Lasix today to see if we can get some of the fluid off but prognosis is extremely guarded Spoke with the comp field case manager and nurses and I think the patient may actually qualify for hospice? (He has no insurance) His mom would not take him home so not sure what facility we will be able to get him to? Continue home meds Try to keep the scrotum elevated if possible Await further GI input I told him to please quit drinking alcohol and he agrees to Trend labs Home meds DVT prophylaxis (he is already auto anticoagulated with an INR 1.6 due to his poor synthetic function) Full code Prognosis very guarded at best Comment Review of Relevant I have reviewed the following items deepak (where applicable) has been applied. Medications: Current Medications Medications (Trade) Dose Ordered Sig/Claus Route PRN Reason Start Time Stop Time Status Last Admin Dose Admin Levothyroxine Sodium (Synthroid) 25 mcg DAILY06 PO 08/06/21 06:00 08/06/21 06:15 Justifications for Admission Other Justification EDEMA and ELEVATED TBIAGUSTINA MARTE III DO Aug 06, 2021 11:00
--- NOTE | 2021-08-06 11:38 | PDOC ---
Date of Service: DATE: 08/06/21 TIME: 11:30 Subjective: Subjective: Doesn't know if swelling is better - "you tell me." Eating without issue. Says he was told that no medications would "fix this." "He said he'd try to get me Medicare" and "they're trying to send me to a half-way." Objective: Objective: D/w nurse - no place to go on discharge, was living with mom but she doesn't want him to come back. Also reports ongoing scrotal edema and apparently varying attitude re: stopping alcohol. On IV Lasix BID. Social work and PAT have seen, hematology recommended outpt f/u. Vital Signs: Vital Signs Date Time Temp Pulse Resp B/P (MAP) Pulse Ox O2 Delivery O2 Flow Rate FiO2 08/06/21 07:00 97.6 86 18 144/54 (84) 98 Room Air 97.6 Labs: Laboratory Tests Test 08/05/21 12:05 08/05/21 16:48 08/05/21 20:22 08/06/21 07:44 Glucose (Fingerstick) 164 mg/dL 163 mg/dL 160 mg/dL 107 mg/dL Test 08/06/21 11:17 Glucose (Fingerstick) 143 mg/dL Imaging: Echo 08/03 <Conclusion> The left ventricular systolic function is normal. The ejection fraction is 60-65%. There is normal LV segmental wall motion. Transmitral Doppler flow pattern is Grade I-abnormal relaxation pattern. Trace tricuspid regurgitation. There is no evidence of significant pericardial effusion. PE: GEN: NAD LUNGS: CTAB HEART: RRR ABD: BS+, distended/anasarca - slightly better? NEURO/PSYCH: A & O 3 A/P: Anasarca/scrotal edema Hepatic steatosis, alcohol overuse Elevated TSH -- Difficult situation. Encouraged ongoing sobriety and compliance w/ medications as outpt. Check BMP. Justicifation of Admission Dx: Justifications for Admission: Justification of Admission Dx: Yes MIRIAM DIAZ Aug 06, 2021 11:38
--- NOTE | 2021-08-06 12:51 | NUR ---
MADAY following. Discussed with RN. MADAY spoke with Dr. Merida this morning, pt is at a 50/50 chance of whether is going to live much longer with his drinking and the problems his body is having due to this. Dr. Merida wanted [facility] team to come back to try and convince pt to get treatment. Jameson (PAT) met with pt, pt still denying he drinks very much and is minimizing the drinking. Jameson left [facility] and encouraged pt to call and schedule an intake. MADAY spoke with pt's mother, Johanna Polanco - pt is not able to return home due to pt's mother being afraid of him and how he has been behaving recently. Johanna Polanco wondered about a [place] [facility] care facility and stated pt was apparently willing to go, MADAY discussed about [facility] stating pt does not qualify for any medicaid programs at this time. Rolando reported pt recently lost his job, has no savings and lost his mobile home recently. Pt not able to walk due to his swollen scrotum. SW spoke with [facility], they could potentially file for medicaid disability if Dr. Merida believes pt is unable to work for 12 months. MADAY sent message to Dr. Merida, awaiting response. MADAY will continue to follow.
[2021-08-06] MEDS: THIAMINE INJ 100 MG in IV DEXTROSE 5% 50 ML IV SCH (13:05)
[2021-08-06 13:24] LABS: CALCIUM 7.6 mg/dL (8.5-10.1); CREATININE 0.9 mg/dL (0.7-1.3); POTASSIUM 3.6 mmol/L (3.5-5.1)
[2021-08-06 15:00] VITALS: BP 125/62
[2021-08-06 19:00] VITALS: BP 146/61
[2021-08-06] MEDS: ACETAMINOPHEN 325 MG TABLET. PO PRN (20:36)
[2021-08-06 22:44] VITALS: BP 152/68
[2021-08-07 03:00] VITALS: BP 158/62
[2021-08-07] MEDS: LEVOTHYROXINE 25 MCG TABLET. PO SCH (05:36)
[2021-08-07 07:00] VITALS: BP 131/71
[2021-08-07] MEDS: FUROSEMIDE 40 MG/4 ML VIAL. IVP SCH ×2 (09:10→14:14)
[2021-08-07] MEDS: FOLIC ACID 1 MG TABLET. PO SCH (09:10)
[2021-08-07] MEDS: NYSTATIN TOPICAL POWDER 15GM BOTTLE. TP SCH ×2 (09:11→21:00)
[2021-08-07] MEDS: THIAMINE INJ 100 MG in IV DEXTROSE 5% 50 ML IV SCH (09:11)
[2021-08-07] MEDS: NYSTATIN 100,000 UNIT/GM TOPICAL OINTMENT 15GM TUBE. TP SCH ×2 (09:12→21:00)
--- NOTE | 2021-08-07 09:43 | PDOC ---
Date of Service: DATE: 08/07/21 TIME: 09:41 Subjective: Subjective: Feels fine, no complaints. Says social work talked to him and gave him a lot of information. Objective: Objective: D/w nurse - no new GI concerns per nurse - awaiting placement. Vital Signs: Vital Signs Date Time Temp Pulse Resp B/P (MAP) Pulse Ox O2 Delivery O2 Flow Rate FiO2 08/07/21 07:00 98.1 80 18 131/71 (91) 99 98.1 08/07/21 03:00 Room Air Labs: Laboratory Tests Test 08/06/21 11:17 08/06/21 13:00 08/06/21 16:51 08/06/21 18:58 Glucose (Fingerstick) 143 mg/dL 140 mg/dL 163 mg/dL Sodium Level 133 mmol/L Potassium Level 3.6 mmol/L Chloride Level 97 mmol/L Carbon Dioxide Level 32 mmol/L Anion Gap 4 Blood Urea Nitrogen 11 mg/dL Creatinine 0.9 mg/dL Estimated GFR (Cockcroft-Gault) 89.0 Glucose Level 150 mg/dL Calcium Level 7.6 mg/dL Test 08/07/21 07:43 Glucose (Fingerstick) 117 mg/dL PE: GEN: NAD LUNGS: CTAB HEART: RRR ABD: anasarca - stable/better NEURO/PSYCH: A & O 3 A/P: Anasarca/scrotal edema - on IV Lasix BID Hepatic steatosis, alcohol overuse Elevated TSH - now on replacement -- Stable from GI standpoint, awaiting discharge. Long-term - no alcohol. Justicifation of Admission Dx: Justifications for Admission: Justification of Admission Dx: Yes MIRIAM DIAZ Aug 07, 2021 09:43
[2021-08-07 11:00] VITALS: BP 154/62
--- NOTE | 2021-08-07 11:47 | PDOC ---
[employer] PROGRESS NOTE Date of Service DOS: DATE: 08/07/21 TIME: 11:44 Chief Complaint Chief Complaint Probable advanced liver disease secondary to alcohol Coagulopathy Hypoalbuminemia Poor hepatic synthetic function Ascites Acute on chronic volume overload Acute electrolyte derrangement - hyponatremia and hypochloremia Anasarca Hyperbilirubinemia Pancytopenia Morbid Obesity Hepatic steatosis Hx of DM History of Present Illness History of Present Illness 08/07/2021 Patient seen and examined, in bed, did not rise to talk had many questions, reports he is not allowed to return to his moms house i asked about his drinking history and he told me he could not drink that much becuase 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 He could not estimate how many drinks he would have on his day off. still massive scrotal edema, legs better, HISTORY OF PRESENT ILLNESS: A 65-year-old female with history of CVA with aphasia, left-sided hemiparesis, alf resident, diabetes, hypertension, hyperlipidemia, was brought by EMS from [place] due to concerns of fever, vomiting, possible aspiration. The patient is able to answer only a few questions. The patient had fever of 101. White count was elevated at 21,000 with a left shift. Lactate was 3.0. Troponin was normal. UA showed pyuria. The patient was found to have left upper extremity cellulitis. Acetone was negative. Salicylate was 1.1. Chest x-ray revealed pulmonary venous congestion, minimally displaced left humeral head, diffuse swelling of the left upper extremity. X-ray reviewed. The patient was started on Zosyn and vancomycin. ID consultation has been requested for further evaluation and treatment. Discussed with nursing staff. Afebrile this morning. Able to answer a few questions. A little better, still very slow. Denies any headache, nausea, vomiting, fever, chills, was unable to answer how long she has had left upper extremity swelling and redness and pain. Says no when I asked her if she had a Arango catheter in place. Lab in 03/18/2021 Patient seen and examined He is up in the chair He has massive scrotal edema and penile edema as well Admits to drinking 8 beers a day but I suspect he drinks a lot more than that (his INR is 1.6) I suspect he has advanced liver disease 51 yo M with PMHx of DM, obesity who comes in with worsening shortness of breath and lower extremity swelling that has been happening over several weeks. Before this incident, patient was seen at [facility] ER and was told to see a liver specialist because he likely has liver disease. He was given a diuretic and sent home. He has not followed up with those recommendations and therefore he decided to come to [facility]. He does endorse nightly 6-8 beers of drinking. Patient states over the past several weeks she has noticed that he has become more short of air with any exertion and does exhibit mild shortness of air at rest. Denies chest pain, diarrhea, hematemesis, melena, or constipation. He does endorse weight gain. He is COVID vaccinated. 08/02/2021 No acute events overnight. Patient seen examined bedside. Complaining of peripheral edema. Feels that his edema has slightly improved. Denies any shortness of breath. Patient's chart, labs, images were reviewed and discussed with RN 08/03/2021 No acute events overnight. Lasix administered yesterday. Unable to quantify but patient states that he has been urinating a lot. Scrotal edema. Upper extremity edema as well. Pending echo. Patient's chart, labs, images were reviewed and discussed with RN Vitals/I&O Vitals/I&O: Vital Signs Date Time Temp Pulse Resp B/P (MAP) Pulse Ox O2 Delivery O2 Flow Rate FiO2 08/07/21 08:00 Room Air 08/07/21 07:00 98.1 80 18 131/71 (91) 99 98.1 I & O 08/06/21 08/06/21 08/07/21 14:59 22:59 06:59 Intake Total 120 ml Output Total 1100 ml 600 ml Balance -1100 ml -600 ml 120 ml Physical Exam General: Alert, Oriented X3, Cooperative Heart: Regular rate Lungs: Clear Abdomen: Normal bowel sounds Extremities: No cyanosis, Other (2+ LE edema, better per him) Skin: No breakdown, Other (Scrotal edema including upper and lower extremity edema bilaterally) Labs Labs: Laboratory Tests Test 08/06/21 13:00 08/06/21 16:51 08/06/21 18:58 08/07/21 07:43 Sodium Level 133 mmol/L (136-145) Potassium Level 3.6 mmol/L (3.5-5.1) Chloride Level 97 mmol/L (98-107) Carbon Dioxide Level 32 mmol/L (21-32) Anion Gap 4 (6-14) Blood Urea Nitrogen 11 mg/dL (8-26) Creatinine 0.9 mg/dL (0.7-1.3) Estimated GFR (Cockcroft-Gault) 89.0 Glucose Level 150 mg/dL (70-99) Calcium Level 7.6 mg/dL (8.5-10.1) Glucose (Fingerstick) 140 mg/dL (70-99) 163 mg/dL (70-99) 117 mg/dL (70-99) Test 08/07/21 11:42 Glucose (Fingerstick) 133 mg/dL (70-99) Assessment and Plan Assessmemt and Plan Problems Medical Problems: (1) Generalized edema Status: Acute (2) History of alcoholism Status: Acute (3) Hyperbilirubinemia Status: Acute (4) Person under investigation for COVID-19 Status: Acute (5) Respiratory distress Status: Acute Comment Review of Relevant I have reviewed the following items deepak (where applicable) has been applied. Justifications for Admission Other Justification EDEMA and ELEVATED TBILI ISHA ZHONG MD Aug 07, 2021 11:47
[2021-08-07 15:00] VITALS: BP 154/62
--- NOTE | 2021-08-07 17:22 | NUR ---
Nurse's note: Patient requesting his information sent to [place] Fax [phone].
[2021-08-07] MEDS: ACETAMINOPHEN 325 MG TABLET. PO PRN ×2 (18:36→22:32)
[2021-08-07 19:00] VITALS: BP 154/62
[2021-08-07] MEDS: LORazepam 0.5 MG TABLET PO PRN (22:32)
[2021-08-07 23:00] VITALS: BP 160/62
[2021-08-08 03:00] VITALS: BP 108/78
[2021-08-08] MEDS: LEVOTHYROXINE 25 MCG TABLET. PO SCH (06:22)
[2021-08-08 07:00] VITALS: BP 102/75
[2021-08-08] MEDS: FOLIC ACID 1 MG TABLET. PO SCH (08:13)
[2021-08-08] MEDS: FUROSEMIDE 40 MG/4 ML VIAL. IVP SCH ×2 (08:14→13:58)
[2021-08-08] MEDS: NYSTATIN 100,000 UNIT/GM TOPICAL OINTMENT 15GM TUBE. TP SCH (08:19)
[2021-08-08] MEDS: NYSTATIN TOPICAL POWDER 15GM BOTTLE. TP SCH (08:19)
[2021-08-08] MEDS ORDERED: THIAMINE 100 MG TABLET. PO SCH (09:00)
--- NOTE | 2021-08-08 09:48 | PDOC ---
[employer] PROGRESS NOTE Date of Service DOS: DATE: 08/08/21 TIME: 09:46 Chief Complaint Chief Complaint Probable advanced liver disease secondary to alcohol Coagulopathy Hypoalbuminemia Poor hepatic synthetic function Ascites Acute on chronic volume overload Acute electrolyte derrangement - hyponatremia and hypochloremia Anasarca Hyperbilirubinemia Pancytopenia Morbid Obesity Hepatic steatosis Hx of DM History of Present Illness History of Present Illness 08/08/2021 Patient seen and examined Discussed with RN Chart reviewed Discussed with case management He states he has an appointment to talk to [facility] alcohol rehab today at 1030 to assist with housing? Scrotal edema is down perhaps 5 or 10% Extremity edema is resolving However he is still very disabled and unlikely to ever work again. Suspect he will qualify for insurance assistance such as Social Security and Medicaid etc. 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 He could not estimate how many drinks he would have on his day off. still massive scrotal edema, legs better, 08/06/2021 Patient seen and examined He is in bed Quite anxious about his prognosis He had me call his mom Nimco She does not want him to come home she cannot take care of him anymore and does not want to be an enabler States she found 60 extra large cans of beer in his car plus numerous bottles of other liquors Patient now admits he has been drinking a lot more than what he told us I explained to him and his mom is close to qualifying for hospice if he does not quit drinking His mom explains that the just lost her to alcoholism as well within the past couple years Patient still has massive scrotal edema and penile edema Discussed with case management discussed with RN HISTORY OF PRESENT ILLNESS: A 65-year-old female with history of CVA with aphasia, left-sided hemiparesis, fdc resident, diabetes, hypertension, hyperlipidemia, was brought by EMS from [place] due to concerns of fever, vomiting, possible aspiration. The patient is able to answer only a few questions. The patient had fever of 101. White count was elevated at 21,000 with a left shift. Lactate was 3.0. Troponin was normal. UA showed pyuria. The patient was found to have left upper extremity cellulitis. Acetone was negative. Salicylate was 1.1. Chest x-ray revealed pulmonary venous congestion, minimally displaced left humeral head, diffuse swelling of the left upper extremity. X-ray reviewed. The patient was started on Zosyn and vancomycin. ID consultation has been requested for further evaluation and treatment. Discussed with nursing staff. Afebrile this morning. Able to answer a few questions. A little better, still very slow. Denies any headache, nausea, vomiting, fever, chills, was unable to answer how long she has had left upper extremity swelling and redness and pain. Says no when I asked her if she had a Arango catheter in place. Lab in 03/18/2021 Patient seen and examined He is up in the chair He has massive scrotal edema and penile edema as well Admits to drinking 8 beers a day but I suspect he drinks a lot more than that (his INR is 1.6) I suspect he has advanced liver disease 51 yo M with PMHx of DM, obesity who comes in with worsening shortness of breath and lower extremity swelling that has been happening over several weeks. Before this incident, patient was seen at [facility] ER and was told to see a liver specialist because he likely has liver disease. He was given a diuretic and sent home. He has not followed up with those recommendations and therefore he decided to come to [facility]. He does endorse nightly 6-8 beers of drinking. Patient states over the past several weeks she has noticed that he has become more short of air with any exertion and does exhibit mild shortness of air at rest. Denies chest pain, diarrhea, hematemesis, melena, or constipation. He does endorse weight gain. He is COVID vaccinated. 08/02/2021 No acute events overnight. Patient seen examined bedside. Complaining of peripheral edema. Feels that his edema has slightly improved. Denies any shortness of breath. Patient's chart, labs, images were reviewed and discussed with RN 08/03/2021 No acute events overnight. Lasix administered yesterday. Unable to quantify but patient states that he has been urinating a lot. Scrotal edema. Upper extremity edema as well. Pending echo. Patient's chart, labs, images were reviewed and discussed with RN Vitals/I&O Vitals/I&O: Vital Signs Date Time Temp Pulse Resp B/P (MAP) Pulse Ox O2 Delivery O2 Flow Rate FiO2 08/08/21 07:00 98.4 88 16 102/75 (84) 96 Room Air 98.4 I & O 08/07/21 08/07/21 08/08/21 15:00 23:00 07:00 Intake Total 240 ml 480 ml Output Total 650 ml 600 ml 400 ml Balance -650 ml -360 ml 80 ml Physical Exam General: Alert, Oriented X3, Cooperative Heart: Regular rate Lungs: Clear Abdomen: Normal bowel sounds Extremities: No cyanosis, Other (2+ LE edema, better per him) Skin: No breakdown, Other (Scrotal edema including upper and lower extremity edema bilaterally) Labs Labs: Laboratory Tests Test 08/07/21 11:42 08/07/21 16:49 08/07/21 19:49 08/08/21 07:16 Glucose (Fingerstick) 133 mg/dL (70-99) 160 mg/dL (70-99) 158 mg/dL (70-99) 114 mg/dL (70-99) Assessment and Plan Assessmemt and Plan Problems Medical Problems: (1) Generalized edema Status: Acute (2) History of alcoholism Status: Acute (3) Hyperbilirubinemia Status: Acute (4) Person under investigation for COVID-19 Status: Acute (5) Respiratory distress Status: Acut Probable advanced liver disease secondary to severe alcohol abuse (he now admits he has been drinking a lot more than he told was originally) Coagulopathy Hypoalbuminemia Poor hepatic synthetic function Hypoalbuminemia Poor hepatic synthetic function Ascites Acute on chronic volume overload Acute electrolyte derrangement - hyponatremia and hypochloremia Anasarca Hyperbilirubinemia Pancytopenia Morbid Obesity Hepatic steatosis Hx of DM Plan Continue with daily Lasix I explained to him again he will likely need hospice if he does not quit drinking and he understands His mom would not take him home so not sure what facility we will be able to get him to? He is meeting with [facility] rehab today Continue home meds Try to keep the scrotum elevated if possible Await further GI input I told him to please quit drinking alcohol and he agrees to [facility]rend labs Home meds DVT prophylaxis (he is already auto anticoagulated with an INR 1.6 due to his poor synthetic function) Full code Prognosis very guarded at best Comment Review of Relevant I have reviewed the following items deepak (where applicable) has been applied. Medications: Current Medications Medications (Trade) Dose Ordered Sig/Claus Route PRN Reason Start Time Stop Time Status Last Admin Dose Admin Thiamine Mononitrate (Vitamin B-1) 100 mg DAILY PO 08/08/21 09:00 08/08/21 08:13 Justifications for Admission Other Justification EDEMA and ELEVATED TBILI AGUSTINA DIALLO III DO Aug 08, 2021 09:48
--- NOTE | 2021-08-08 09:50 | PDOC ---
Date of Service: DATE: 08/08/21 TIME: 09:48 Subjective: Subjective: Feels fine. Doesn't know if swelling is better. I asked if he gets out of bed much - "I was just up." Says he's working on where to go when discharged. Objective: Vital Signs: Vital Signs Date Time Temp Pulse Resp B/P (MAP) Pulse Ox O2 Delivery O2 Flow Rate FiO2 08/08/21 07:00 98.4 88 16 102/75 (84) 96 Room Air 98.4 Labs: Laboratory Tests Test 08/07/21 11:42 08/07/21 16:49 08/07/21 19:49 08/08/21 07:16 Glucose (Fingerstick) 133 mg/dL 160 mg/dL 158 mg/dL 114 mg/dL PE: GEN: NAD, laying in bed per usual, bag of chips on bedside table NEURO/PSYCH: A & O 3 A/P: Anasarca/scrotal edema Hepatic steatosis, alcohol overuse Elevated TSH -- Awaiting discharge plans. Justicifation of Admission Dx: Justifications for Admission: Justification of Admission Dx: Yes MIRIAM DIAZ Aug 08, 2021 09:50
[2021-08-08] MEDS ORDERED: FURO-68 PO (09:54)
[2021-08-08] MEDS ORDERED: LEVO25TA4 PO (09:54)
[2021-08-08] MEDS ORDERED: LORA0.5T96 PO (09:54)
[2021-08-08 11:00] VITALS: BP 126/69
--- NOTE | 2021-08-08 11:11 | NUR ---
SW following. Discussed with RN, pt homeless, room air, cardiac diet. COVID-19 negative. Discharge order for home with self care. SW offered pt a cab to a homeless assisted, pt declined. Pt stating he is going to call his mom and have her bring his car. SW spoke with pt's mother, she is going to bring the car, but is unable to help patient any further. Pt is a high risk readmission due to non compliance. Pt has a [facility] intake at 1030 tomorrow (08/09/21) - will have to arrange to meet with them in the community. RN notified. [facility] notified [facility] of discharge. MADAY will continue to follow.
--- NOTE | 2021-08-08 16:33 | NUR ---
Discharge Note: GARCIA DUMONT [address] Discharge instructions and discharge home medications reviewed with the patient and a copy given. All questions have been answered and understanding verbalized. The following instructions and handouts were given: Home meds as directed Discussed with the patient the importance of treating his hypothyroidism Encouraged to follow up his application with med assist Follow up with PCP in a week Discontinued lines and drains: peripheral IV intact, patient tolerated removal, no complications noted Patient discharged to home with self care on RA via WC accompanied by the patient's mother at 1610.
== END 2021-08-08 16:10 | disposition home or self-care (01) | DRG 433 ==
LOC: ER 11:25 → 5 SOUTH 12:55 → ER 15:00
PROVIDERS: ADMIT Internal Medicine; ATTEND Internal Medicine
DX: K70.11 Alcoholic hepatitis with ascites (principal); D61.818 Other pancytopenia; D68.9 Coagulation defect, unspecified; E87.1 Hypo-osmolality and hyponatremia; G81.94 Hemiplegia, unspecified affecting left nondominant side; I50.30 Unspecified diastolic (congestive) heart failure; K76.6 Portal hypertension; L03.114 Cellulitis of left upper limb; E66.01 Morbid (severe) obesity due to excess calories; K74.60 Unspecified cirrhosis of liver; D50.9 Iron deficiency anemia, unspecified; D53.9 Nutritional anemia, unspecified; E11.9 Type 2 diabetes mellitus without complications; E78.5 Hyperlipidemia, unspecified; E87.8 Other disorders of electrolyte and fluid balance, not elsewhere classified; E88.09 Other disorders of plasma-protein metabolism, not elsewhere classified; F10.10 Alcohol abuse, uncomplicated; F17.200 Nicotine dependence, unspecified, uncomplicated; I11.0 Hypertensive heart disease with heart failure; I69.320 Aphasia following cerebral infarction; K76.0 Fatty (change of) liver, not elsewhere classified; N48.89 Other specified disorders of penis; N50.89 Other specified disorders of the male genital organs; Z20.822 Contact with and (suspected) exposure to COVID-19
CPT/HCPCS: 36415; 71045; 74176; 76700; 80048; 80053; 80061; 80307; 81001; 82140; 82525; 82607; 82668; 82962; 83010; 83036; 83540; 83550; 83615; 83690; 83880; 84439; 84443; 84484; 85025; 85027; 85045; 85610; 86705; 86709; 86803; 87086; 87340; 87426; 93005; 93306; G0480; J1940; J3411; J3420; J7060; U0003; U0005; 97110-GO; 99285-25; G0378